=== PATIENT | female | born 1930 | race Caucasian/White ===

== ENCOUNTER 2017-05-12 21:34 | Inpatient (IN) | payer MEDICARE, BC ==
[2017-05-12 22:26] LABS: #Basophils 0.1 thou/uL (0.0-0.2); #Lymphocytes 2.9 thou/uL (1.20-3.40); #Monocytes 0.5 thou/uL (0.11-0.59); #Neutrophils 3.7 thou/uL (1.40-6.50); %Basophils 1.2 % (0.0-1.0); %Eosinophils 0.7 % (0.0-10.0); %Lymphocytes 40.1 % (21.0-51.0); %Monocytes 6.6 % (0.0-10.0); Hematocrit 35.7 % (36.0-47.0); Red Blood Cell (RBC) Count 3.91 mill/uL (4.20-5.40); White Blood Cell (WBC) Count 7.2 thou/uL (4.8-10.8)
[2017-05-12 22:29] LABS: PTT 31.4 SEC (22.9-36.1); Prothrombin Time 14.8 SEC (12.0-14.7)
[2017-05-12 22:35] LABS: ALT (SGPT) 16 U/L (8-55); Alkaline Phosphatase 74 U/L (40-150); Anion Gap 19 mmol/L (10-20); BUN (Urea Nitrogen) 19 mg/dL (9.8-20.1); Bilirubin, Total 1.2 mg/dL (0.2-1.2); Calc. Creatinine Clearance 0 mL/min (70-130); Calcium 6.8 mg/dL (7.8-10.44); Carbon Dioxide 24 mmol/L (23-31); Chloride 103 mmol/L (98-107); Estimated GFR-MDRD 37; Globulin 3.4 g/dL (2.4-3.5); Protein, Total 7.2 g/dL (6.0-8.3)
[2017-05-12 22:37] LABS: Troponin I 0.015 ng/mL (< 0.028)
[2017-05-12 22:49] LABS: AST (SGOT) 43 U/L (5-34)
[2017-05-12 22:53] LABS: Acetaminophen Less than 6.0 mcg/mL (10.0-30.0); Salicylate Less than 8.0 mg/dL (15.0-30.0)
--- NOTE | 2017-05-12 22:55 | CT ---
BRAIN CT WITHOUT IV CONTRAST: 05/12/17 HISTORY: 86-year-old female with altered mental status. Brain CT without IV contrast. HISTORY: An 86-year-old female with altered mental status. There is atrophy and marked chronic white matter ischemic change noted bilaterally. No focal mass or midline shift. No intra or extra-axial hemorrhage. Sinuses and mastoids are clear. IMPRESSION: Atrophy and very extensive chronic white matter ischemic changes bilaterally without mass or bleed. POS: [facility]
[2017-05-12 23:14] LABS: Bilirubin Negative (Negative); Blood, Urine Trace (Negative); Glucose, Urine (Dipstick) Negative (Negative); Ketone, Urine Negative (Negative); Nitrite Negative (Negative); Protein, Urine (Dipstick) Negative (Neg-Trace); Urobilinogen 0.2 mg/dL (0.2-1.0)
[2017-05-12 23:23] LABS: Bacteria/HPF None Seen HPF (None Seen); Hyaline Casts/LPF 0-3 HYALINE CAST LPF (0-3 Hyaline); RBC/HPF 0-3 HPF (0-3); Squamous Epithelial 0-3 HPF (0-3); WBC/HPF 0-3 HPF (0-3)
[2017-05-12 23:24] LABS: Amphetamine Not Detected (NotDetected); Methadone Not Detected (NotDetected); Methamphetamine Not Detected (NotDetected)
[2017-05-13 02:14] VITALS: BMI 20.1
[2017-05-13] MEDS ORDERED: Ondansetron ODT 4 MG TAB PO PRN (09:33)
[2017-05-13] MEDS ORDERED: Senokot 8.6 MG TAB PO PRN (09:33)
[2017-05-13] MEDS ORDERED: Calcium Carbonate 500 MG ChewTAB PO PRN (09:33)
[2017-05-13] MEDS ORDERED: Ondansetron HCl/PF 4 MG/2 ML Vial IVP PRN (09:33)
[2017-05-13] MEDS ORDERED: Nitroglycerin 0.4 MG TAB (25 Tab Bottle) PO PRN (09:33)
[2017-05-13] MEDS ORDERED: Acetaminophen 325 MG TAB PO PRN (09:33)
[2017-05-13] MEDS ORDERED: Nitroglycerin 2% Ointment 1 INCH/1 GM Packet TOP PRN (09:36)
--- NOTE | 2017-05-13 09:48 | HP ---
DATE OF ADMISSION: 05/13/2017 PRIMARY CARE PHYSICIAN: Vicente Garcia M.D. PRIMARY TEXTILE SCREEN MAKER: Dominick Reeves M.D. CHIEF COMPLAINT: Altered mentation. CODE STATUS: FULL CODE. SURROGATE DECISION MAKER: . HISTORY OF PRESENT ILLNESS: The patient is an 86-year-old female with paroxysmal atrial fibrillation on anticoagulation and colon cancer who presented to the emergency room with above complaints. History obtained from the ER record. Patient cannot recall any event from last night. Patient was discharged from this facility approximately 2 weeks ago. She was admitted for acute kidney injury with dehydration and UTI. She was discharged home on ciprofloxacin. Per ER record, the patient presented to the emergency room with altered mentation, confusion, and disorientation. Over the last one month, patient had intermittent hallucination, which is completely different from this. The and the patient went to the dinner last night. When they returned home , she was unable to recognize the house. There was no focal neurologic deficit reported. No recent injury, fever, or chills reported. The is not at the bedside. No other information available from the patient. In the emergency room, her initial vital signs showed temperature 97.4, respiration 19, pulse of 60, blood pressure of 174/98 with O2 saturation of 99% on room air. CT scan of the brain in the emergency room was negative for acute findings. It showed atrophy with extensive chronic white matter ischemic changes. Her EKG showed atrial fibrillation. The patient is currently on Eliquis per previous record. PAST MEDICAL HISTORY: 1. Paroxysmal atrial fibrillation on anticoagulation. 2. CKD stage 3. 3. History of colon cancer. 4. GERD. 5. Moderate protein calorie malnutrition. PAST SURGICAL HISTORY: 1. Laparoscopic cholecystectomy. 2. Right ovarian oophorectomy. 3. Colon resection. 4. Bladder reconstruction. ALLERGIES: The patient is allergic to CODEINE, LATEX, PENICILLIN, and SULFA. SOCIAL HISTORY: Patient currently lives at home with her . No tobacco, alcohol or drug use. FAMILY HISTORY: No family history of premature coronary artery disease, stroke , or cancer per review of previous records. HOME MEDICATIONS: Cannot be obtained from the patient due to current cognitive status. REVIEW OF SYSTEMS: Cannot be obtained from the patient due to current cognitive status. PHYSICAL EXAMINATION: VITAL SIGNS: As discussed above. GENERAL: An 86-year-old female in no apparent distress. Still confused. Per RN, confusion has somewhat improved. HEENT: Head is atraumatic, normocephalic. Sclerae are anicteric. Moist mucous membranes. No oral lesion. NECK: Supple, no JVD appreciated. No carotid bruit. LUNGS: Clear to auscultation bilaterally. HEART: S1 and S2 present, irregularly irregular. No significant rubs or gallops are appreciated. ABDOMEN: Soft. There is a scar from previous surgery. No guarding, rigidity or costovertebral angle tenderness noted. EXTREMITIES: No edema or calf tenderness. NEUROLOGIC/PSYCHIATRIC: Examination could not be done due to current cognitive status. The patient is alert; however is not oriented to time and place. She follows commands to some extent. There is no focal deficit appreciated. SKIN: Somewhat poor skin turgor. LYMPH NODES: No palpable lymph nodes in the neck. MUSCULOSKELETAL: No joint swelling or tenderness. LABORATORY FINDINGS AND IMAGIN. CBC showed WBC 7.2, hemoglobin 11.1, hematocrit 35.7, and platelet 265. 2. Chemistries showed sodium 142, potassium 3.8, chloride 103, bicarbonate 24, BUN of 19, creatinine 1.34. 3. TSH was normal. 4. Cardiac enzymes are normal. 5. Urinalysis was negative for WBC bacteria. 6. Urine drug screen was negative. 7. CT scan of the brain by my review as discussed above. 8. CT scan of the abdomen and pelvis in last admission was negative for obstruction. IMPRESSION: 1. Toxic metabolic encephalopathy, rule out transient ischemic attack. Exact etiology unclear. 2. Paroxysmal atrial fibrillation, on anticoagulation. 3. Acute kidney injury on chronic kidney disease stage 2. 4. Gastroesophageal reflux disease. 5. Moderate protein calorie malnutrition. 6. Dehydration. 7. Chronic anemia. 8. PENICILLIN, SULFA, AND CODEINE allergy. PLAN: 1. The patient will be monitored in the Stroke Unit. We will obtain an MRI of the brain with contrast due to history of colon cancer. We will try to obtain accurate home medication list. Frequent neuro checks. Fall precautions. We will resume Eliquis based on last discharge summary. We will hold diuretics for now. Gentle hydration for now. 2. We will discuss the plan of care with the family when they arrive. CHILO
[2017-05-13] MEDS ORDERED: Apixaban 5 MG TAB PO SCH (10:30)
[2017-05-13] MEDS: Sodium Chloride 0.9% 1,000 ML IV SCH (10:53)
[2017-05-13 11:17] LABS: Anion Gap 19 mmol/L (10-20); BUN (Urea Nitrogen) 15 mg/dL (9.8-20.1); BUN/Creatinine Ratio 12.93; Calc. Creatinine Clearance 28 mL/min (70-130); Calcium 6.7 mg/dL (7.8-10.44); Carbon Dioxide 22 mmol/L (23-31); Chloride 106 mmol/L (98-107); Estimated GFR-MDRD 45; Phosphorus 3.7 mg/dL (2.3-4.7)
[2017-05-13 11:21] LABS: Troponin I 0.029 ng/mL (< 0.028)
[2017-05-13] MEDS ORDERED: Folic Acid 1 MG TAB PO SCH (11:30)
--- NOTE | 2017-05-13 11:44 | RAD ---
RADIOGRAPH CHEST 1 VIEW RADIOGRAPH ABDOMEN 2 VIEWS: Date: 05/13/17 Time: 1003 HOURS HISTORY: 86-year-old female with altered mental status. History of small bowel obstruction. COMPARISON: 03/11/17. FINDINGS: New finding of mild blunting of the left lateral costophrenic angle. No air space density identified . Mild cardiomegaly without pulmonary vascular engorgement or pulmonary edema. No pneumothorax. No evidence of pneumoperitoneum. A few air fluid levels in nondilated, gas-filled loops of colon. No evidence of small bowel dilation. Cholecystectomy clips. No major interval change in the abdomen si nce 03/11/17. IMPRESSION: 1. No evidence of small bowel obstruction. 2. No evidence of pneumonia. 3. Small left pleural effusion. 4. Mild cardiomegaly without congestive heart failure. BUCK [] POS: [facility]
[2017-05-13] MEDS ORDERED: Cyanocobalamin (Vitamin B-12) 1,000 MCG TAB PO SCH (11:45)
[2017-05-13] MEDS ORDERED: Magnesium Sulfate 4 GM in Sodium Chloride 0.9% 250 ML 250 ML IVPB SCH (11:45)
[2017-05-13 12:12] LABS: Magnesium Less than 0.7 mg/dL (1.6-2.6)
--- NOTE | 2017-05-13 14:03 | MRI ---
MRI BRAIN NONCONTRAST: HISTORY: 86-year-old female with history of colon cancer, with encephalomalacia. Patient refused IV Gadoliniu m contrast injection. FINDINGS: Lack of IV contrast limits the sensitivity for the detection of intracranial metastasis. The ventricles are normal in size and configuration. There is no restricted diffusion, midline shif t or any other mass effect, recent intraaxial hemorrhage, or extraaxial fluid collection. There are extensive, confluent T2-hyperintensities throughout the cerebral white matter consistent with severe chronic ischemic white matter changes due to microvascular atherosclerosis. There is diffuse brain parenchymal volume loss. IMPRESSION: 1. Involutional changes and severe chronic ischemic white matter changes. 2. Otherwise negative. 3. Lack of IV contrast limits the sensitivity for the detection of intracranial metastasis. Patient refused IV contrast. kaley[] POS: [facility]
[2017-05-13 14:59] LABS: Troponin I 0.016 ng/mL (< 0.028)
[2017-05-13] MEDS: Calcium Carbonate + Vit D 1 TAB PO SCH (17:39)
[2017-05-13] MEDS: Apixaban 5 MG TAB PO SCH (20:38)
[2017-05-13] MEDS: Docusate 100 MG CAP PO SCH (20:38)
[2017-05-13] MEDS: Atorvastatin Calcium 10 MG TAB PO SCH (20:38)
[2017-05-13] MEDS ORDERED: Magnesium 2 GM/NS 0.9% 100 ML 2 GM in Premix Bag 1 BAG IVPB SCH (22:00)
[2017-05-14] MEDS: Sodium Chloride 0.9% 1,000 ML IV SCH ×2 (00:27→08:20)
[2017-05-14 04:53] LABS: #Basophils 0.1 thou/uL (0.0-0.2); #Eosinphils 0.1 thou/uL (0.0-0.7); #Lymphocytes 1.4 thou/uL (1.20-3.40); #Monocytes 0.4 thou/uL (0.11-0.59); #Neutrophils 2.1 thou/uL (1.40-6.50); %Basophils 1.4 % (0.0-1.0); %Eosinophils 2.2 % (0.0-10.0); %Lymphocytes 34.1 % (21.0-51.0); %Monocytes 10.4 % (0.0-10.0); Hematocrit 33.6 % (36.0-47.0); Mean Platelet Volume 7.9 fL (7.4-10.4); Red Blood Cell (RBC) Count 3.59 mill/uL (4.20-5.40); White Blood Cell (WBC) Count 4.1 thou/uL (4.8-10.8)
[2017-05-14 05:11] LABS: ALT (SGPT) 11 U/L (8-55); AST (SGOT) 25 U/L (5-34); Alkaline Phosphatase 63 U/L (40-150); Anion Gap 11 mmol/L (10-20); BUN (Urea Nitrogen) 10 mg/dL (9.8-20.1); Bilirubin, Total 0.8 mg/dL (0.2-1.2); Calc. Creatinine Clearance 38 mL/min (70-130); Calcium 6.6 mg/dL (7.8-10.44); Carbon Dioxide 24 mmol/L (23-31); Chloride 110 mmol/L (98-107); Cholesterol 143 mg/dl (< 200 Desired); Estimated GFR-MDRD 65; Globulin 2.3 g/dL (2.4-3.5); LDL Cholesterol, Calculated 56 mg/dL; Magnesium 2.2 mg/dL (1.6-2.6); Phosphorus 2.8 mg/dL (2.3-4.7); Protein, Total 5.4 g/dL (6.0-8.3)
[2017-05-14] MEDS: Calcium Carbonate + Vit D 1 TAB PO SCH ×3 (08:21→17:31)
[2017-05-14] MEDS: Cyanocobalamin (Vitamin B-12) 1,000 MCG TAB PO SCH (08:21)
[2017-05-14] MEDS: Folic Acid 1 MG TAB PO SCH (08:21)
[2017-05-14] MEDS: Docusate 100 MG CAP PO SCH ×2 (08:21→08:32)
[2017-05-14] MEDS: Apixaban 5 MG TAB PO SCH ×3 (08:22→22:30)
[2017-05-14] MEDS: NS 0.9% w/ 40 MEQ KCL 1,000 ML IV SCH (09:31)
[2017-05-14] MEDS ORDERED: Loperamide HCl 2 MG CAP PO PRN (10:54)
[2017-05-14] MEDS ORDERED: Calcium Gluconate 4.6 MEQ in Sodium Chloride 0.9% 100 ML IVPB SCH (11:15)
--- NOTE | 2017-05-14 11:55 | PRG ---
DATE OF SERVICE: 05/14/2017 SUMMARY: An 86-year-old female with paroxysmal atrial fibrillation on anticoagulation, presented wi th altered mentation. SUBJECTIVE: The patient denies any new complaints at this time. The patient had ventricular tachyc ardia last night. Magnesium at that time was 1.7. She received 2 grams magnesium. She denies any chest pain, shortness of breath, palpitations or focal neurologic deficits. OBJECTIVE: VITAL SIGNS: Temperature 97.7, pulse rate in 40s, respirations 12, blood pressure 137/62 earlier to day. Last blood pressure was 185/75. GENERAL: An 86-year-old female, in no apparent distress. LUNGS: Clear to auscultation bilaterally. No wheezing, rales, or rhonchi. HEART: S1, S2 present. Irregularly irregular. Bradycardic. 2/6 systolic murmur over the mitral a martín. No rubs or gallops. ABDOMEN: Soft, nontender, bowel sounds present. No rebound or guarding. EXTREMITIES: No edema or calf tenderness. NEUROLOGIC: Grossly nonfocal, moves all four extremities. Power was 5/5 in all extremities. Sensa tion to touch was normal. PSYCHIATRIC: The patient is alert and awake. Her mentation is somewhat better today. LABORATORY FINDINGS: Magnesium 2.2, albumin 3.1, potassium 3.0. CBC showed WBC 4.1 with hemoglobin 10.3. Telemetry monitoring by my review showed atrial fibrillation with slow ventricular response. KUB and chest x-ray by my review was negative. MRI of the brain was negative for acute CVA. It showed chronic ischemic white matter changes. IMPRESSION: 1. Toxic metabolic encephalopathy, multifactorial. 2. Hypomagnesemia, corrected. 3. Ventricular tachycardia yesterday evening. 4. 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 5. Gastroesophageal reflux disease, on PPIs at home. 6. Moderate protein calorie malnutrition. 7. Dehydration. 8. Chronic anemia. 9. Poor appetite. 10. Indeterminate troponins, probably secondary to demand ischemia. 11. Hypocalcemia, probably secondary to nutritional deficiency. Vitamin B12 was normal last month. 12. Vitamin B12 deficiency. 13. Hypokalemia. 14. PENICILLIN, SULFA, AND CODEINE allergy. 15. Slightly abnormal LFTs on admission, resolved. PLAN: 1. Continue telemetry monitoring with frequent neuro checks. A cardiology consult for ventricular tachycardia. 2. Replace calcium and potassium. 3. Change IV fluids to NS with 40 mEq of potassium chloride at 75 mL hour. We will discharge omepr azole completely due to risk of hypomagnesemia and C. diff. 4. Check stool for C. diff. 5. Continue amlodipine for now for blood pressure. 6. Replace vitamin B12. 7. Oral calcium with vitamin D supplementation. 8. Continue Eliquis. Plan of care was discussed with Dr. Dash. Plan of care was discussed with the patient, she stated understanding. LEVEL OF RISK: Moderate to high. The patient will require 1 or 2 more days for stabilization. The patient has home health care throu traditions which will be resumed. A.m. labs have been ordered.
--- NOTE | 2017-05-14 14:02 | CON ---
CARDIOLOGY CONSULTATION NOTE DATE OF CONSULTATION: 05/14/2017 INDICATION FOR CONSULTATION: An 86-year-old female with an episode of nonsustained ventricular tach ycardia and chronic atrial fibrillation with slow ventricular response. HISTORY OF PRESENT ILLNESS: This is an 86-year-old female with multiple medical problems with a his tory of chronic atrial fibrillation, was admitted via the emergency room after she had episodes of m ore confusion and disorientation and hallucinations. She had been out to dinner with her an d when they came home, she did not recognize her house. She has been complaining of seeing people i n the house, going to ask her family to have these people removed or for them to get out, but these hallucinations have been ongoing for about a month now. She does have a history of colon cancer. S he had underwent a CT scan and MRI since being in the hospital on this admission. There was no evid ence of acute findings. She does have ischemic white matter changes which is rather extensive, but no acute findings otherwise were noted. She has had no history of subdural hematoma. She did have a fall recently within the last week or two off of her back porch while trying to feed the cat, so t hat she fell. There was no fracture, but she did have a hematoma of the left hip area, but did not have any cerebral injuries associated with this. She does have chronic atrial fibrillation. She haywood s had some slow ventricular response in the past. There has been some discussion with her primary c ardiologist, Dr. Dominick Reeves about pacemaker insertion. This was put on hold for the time being and there was some discussion about putting a port in her to draw blood with her history of colon cance r. She also has had some chronic nausea, vomiting, and diarrhea for the last 5 weeks. She has lost significant amount of weight. When she arrived at this time to the hospital, her magnesium level w as less than 1. She at that time also was having some nonsustained ventricular tachycardia, 2 episo joan, one at 12 beats and one at 15 beats. The magnesium was corrected as well as she was given IV f luids and she seems to be more back to her baseline. At this time, she does not appear to be confus ed and her status is stable and her heart rate is up in the 50s to 60s with atrial fibrillation. Sh reny did have some episodes last night with her heart rate did drop down to the 30s and 40s with her at ria fibrillation, but she appeared to be sleeping at this time and even during the waking hours she has been asymptomatic with bradycardia. Whether or not, the bradycardia has been associated with s ome of her episodes at home is unclear and we could consider placing the monitor if this is in quest ion. At this time, she denies any complaints. She is sitting on the side of the bed. She has had some banana for breakfast and some ice cream yesterday, but has not been eating very well since that she has lost her appetite. PAST MEDICAL HISTORY: Significant for colon cancer. She has had her colon resection and chemothera py about 3 years ago. She has a history of gastroesophageal reflux disease, chronic atrial fibrilla tion, hypertension and hyperlipidemia. PAST SURGICAL HISTORY: She has had a right oophorectomy. She had a cholecystectomy, bladder recons truction. She has also had, I believe recently, a repeat surgery in 01/2017 of due to bowel obstruc tion. SOCIAL HISTORY: She is . She has no children. She has no alcohol or tobacco abuse. This i s her second marriage. FAMILY HISTORY: Noncontributory. REVIEW OF SYSTEMS: Twelve point review of systems is unremarkable except she has some decreased vis ion in the right eye, so she needs to have cataract surgery. She has had the diarrhea, the nausea, and vomiting. She has had some lower extremity edema, which is now resolved after the diarrhea and also she was put on diuretics in the past. This is all now resolved. ALLERGIES: Include LATEX, PENICILLIN, SULFA DRUGS and CODEINE. OUTPATIENT MEDICATIONS: She was taking lisinopril 20 mg b.i.d., omeprazole 20 mg b.i.d., Eliquis 2. 5 mg b.i.d., furosemide 10 mg daily. At this time, her medications include Eliquis 2.5 mg b.i.d., Lipitor 10 mg a day. She is also takin g calcium as well as Tylenol. She takes Colace 100 mg b.i.d.; with her diarrhea, we may need to hol d this medication. She takes Folvite. She has been given magnesium IV. She has other p.r.n. medic ations. She is taking Protonix 40 mg a day. She had been on potassium, amlodipine 5 mg a day, hydr alazine 10 mg p.r.n. PHYSICAL EXAMINATION: GENERAL: Reveals a fragile elderly female. She is alert and oriented. VITAL SIGNS: She is afebrile, heart rate is in the 40s to 60s and is irregular, respiratory rate is 18, O2 saturations are 100%. Her blood pressure fluctuates anywhere between 137/62 to 185/75. HEENT EXAM: Shows head to be normocephalic and atraumatic. Carotid pulses are present. There were no bruits. CHEST: Clear to auscultation without rales, rhonchi or wheezing. CARDIOVASCULAR: Exam reveals an irregularly irregular rhythm. There were no gross murmurs, heaves, thrills, bruits or rubs. ABDOMINAL EXAM: Soft and nontender. Positive bowel sounds are present. EXTREMITIES: Show no clubbing, cyanosis or edema. Pedal pulses are present, but slightly decreased . NEUROLOGIC: She appears to be intact. SKIN: Warm and dry. Her EKG as noted above shows atrial fibrillation. LABORATORY DATA: Shows hemoglobin of 10.3, hematocrit of 33.6 with a white blood cell count of 4.1. Her INR is 1.1. Her potassium is 3.0, previous was 4.2 when she was admitted. Creatinine is 0.84 . Her magnesium level on admission was 0.7 and is now increased up to 2.2. Troponin I was 0.029 de creased now to 0.016. Her albumin was 3.1. LDL cholesterol was 56. IMPRESSION: 1. Atrial fibrillation with slow ventricular response. She eventually may need to have a pacemaker insertion, but she appears to be relatively asymptomatic. However, some of her confusion and hallu cinations may be due to bradycardia associated with atrial fibrillation. We will continue to follow this. I have to discuss with her that she may need to undergo pacemaker insertion and we have disc ussed the procedure as well as the complications and the risks involved. Should she need to undergo pacemaker insertion. 2. History of nonsustained ventricular tachycardia, which most likely was associated with hypomagne semia as well as possibly atrial fibrillation if the ventricular response occurs just at the right f deena as this may invoke ventricular tachycardia. She apparently was asymptomatic. We will watch thi s very carefully. There has been no further episodes; since, we have corrected the magnesium. 3. Chronic kidney disease, which is stable at this time. The creatinine is stable now. 4. History of colon cancer. The CT scans and MRIs have not shown any evidence of brain metastasis and may have accounted for her confusion as well as the hallucinations. 5. Confusion and hallucinations uncertain etiology. This may be due to the slow ventricular respon se or may be due to her overall malnutrition. I will see whether or not this improves. When I did speak to her she did have pretty much normal mentation and was not happy hallucinations at that time . 6. Chronic anemia, this most likely is multifactorial and certainly is due to some of her diet. Key og[place] says she has lost her appetite, is not eating very well. There has been no indication that she is having any hematuria or any hematochezia. 7. Hypomagnesemia. This has been replaced and she appears to be under relatively good control at t his time. 8. Obviously malnutrition. She will be encouraged to eat whatever she can get down orally or incre ase caloric intake. At this time, we will continue to follow the patient; would not suggest pacemak er insertion in this lady at this time, but we will watch her today. If she continues to have heart rates in the 50s to 60s, the most likely she will not need to undergo pacemaker insertion. If she continues to have episodes of 30s-40s, then we will suggest pacemaker insertion to decrease the risk of further hypoperfusion events.
[2017-05-14] MEDS: Magnesium Chloride 64 MG TAB PO SCH ×3 (15:13→22:30)
[2017-05-14] MEDS: Famotidine 20 MG TAB PO SCH ×2 (22:12→22:30)
[2017-05-14] MEDS: Atorvastatin Calcium 10 MG TAB PO SCH ×2 (22:12→22:30)
[2017-05-15] MEDS: NS 0.9% w/ 40 MEQ KCL 1,000 ML IV SCH (02:30)
[2017-05-15 05:41] LABS: Anion Gap 11 mmol/L (10-20); BUN (Urea Nitrogen) 7 mg/dL (9.8-20.1); BUN/Creatinine Ratio 8.86; Calc. Creatinine Clearance 41 mL/min (70-130); Calcium 7.1 mg/dL (7.8-10.44); Carbon Dioxide 21 mmol/L (23-31); Chloride 113 mmol/L (98-107); Estimated GFR-MDRD 69; Magnesium 1.6 mg/dL (1.6-2.6); Phosphorus 1.7 mg/dL (2.3-4.7)
[2017-05-15 08:42] LABS: Anion Gap 12 mmol/L (10-20); BUN (Urea Nitrogen) 8 mg/dL (9.8-20.1); Calc. Creatinine Clearance 42 mL/min (70-130); Calcium 7.1 mg/dL (7.8-10.44); Carbon Dioxide 20 mmol/L (23-31); Chloride 112 mmol/L (98-107); Estimated GFR-MDRD 71
[2017-05-15] MEDS: Apixaban 5 MG TAB PO SCH ×2 (08:52→20:42)
[2017-05-15] MEDS: Famotidine 20 MG TAB PO SCH ×2 (08:53→20:42)
[2017-05-15] MEDS: Cyanocobalamin (Vitamin B-12) 1,000 MCG TAB PO SCH (08:53)
[2017-05-15] MEDS: Calcium Carbonate + Vit D 1 TAB PO SCH ×2 (08:53→15:56)
[2017-05-15] MEDS: Folic Acid 1 MG TAB PO SCH (08:53)
[2017-05-15] MEDS: Magnesium Chloride 64 MG TAB PO SCH ×3 (08:54→20:42)
[2017-05-15 10:05] LABS: Anion Gap 13 mmol/L (10-20); BUN (Urea Nitrogen) 8 mg/dL (9.8-20.1); Calc. Creatinine Clearance 36 mL/min (70-130); Carbon Dioxide 23 mmol/L (23-31); Chloride 112 mmol/L (98-107); Estimated GFR-MDRD 61
--- NOTE | 2017-05-15 10:48 | PDOC.CTH ---
Cardiology Progress Note - Subjective She is doing better. Her mental status is back to normal. - Objective Vital Signs Temp Pulse Resp BP BP BP Pulse Ox 05/15/17 10:29 58 L 05/15/17 09:54 58 L 177/77 H 05/15/17 08:53 61 141/68 H 05/15/17 07:33 97.6 F 61 16 141/68 H 93 L 05/15/17 04:23 98.6 F 57 L 16 149/65 H 97 05/15/17 00:00 98.3 F 54 L 19 129/59 L 95 Weight 106 lb 11.2 oz 05/14/17 05/15/17 05/16/17 06:59 06:59 06:59 Intake Total 2305 2355 Balance 2305 2355 - Physical Examination General/Neuro: alert & oriented x3, NAD Neck: no JVD present Lungs: unlabored respirations Heart: RRR Abdomen: NT/ND Extremities: other: (no edema) - Telemetry Telemetry Rhythm: NSR HR 60's. - Labs Result Diagrams: 05/14/17 04:35 05/15/17 09:23 Troponin/CKMB CK-MB (CK-2) 1.2 ng/mL (0-6.6) 05/12/17 22:20 Troponin I 0.016 ng/mL (< 0.028) 05/13/17 14:30 - Assessment/Plan 1. Sinus bradycardial. 2. AMS, resolved. 3. NSVT 4. Hypomagnesemia, resolved. 5. S/P abdominal tumor resection. 6. Chronic afib. 7. Hypekalemia. Being rechecked now. PLAN: - She feels back to normal. She would like to go home and go see her own [employer] Dr. Reeves to see what the next step should be. - She will need an ischemic work up if has not already been done recently. - No BB due to bradycardia. - CV stable. - May be discharged home once potassium corrected.
--- NOTE | 2017-05-15 10:59 | PDOC.PN ---
- Subjective Encounter Start Date: 05/15/17 Encounter Start Time: 10:00 Patient seen and examined. No new complaints. Mentation improved. - Objective Resuscitation Status: Resuscitation Status FULL:Full Resuscitation MAR Reviewed: Yes Vital Signs & Weight: Vital Signs (12 hours) Temp Pulse Resp BP BP BP Pulse Ox 05/15/17 10:29 58 L 05/15/17 09:54 58 L 177/77 H 05/15/17 08:53 61 141/68 H 05/15/17 07:33 97.6 F 61 16 141/68 H 93 L 05/15/17 04:23 98.6 F 57 L 16 149/65 H 97 05/15/17 00:00 98.3 F 54 L 19 129/59 L 95 Weight Weight 106 lb 11.2 oz I&O: 05/14/17 05/15/17 05/16/17 06:59 06:59 06:59 Intake Total 2305 2355 Balance 2305 2355 Result Diagrams: 05/14/17 04:35 05/15/17 09:23 EKG Reviewed by me: Yes (Tele Afib ) Phys Exam - Physical Examination Constitutional: NAD Respiratory: no wheezing, no rhonchi Cardiovascular: no rub, irregular Gastrointestinal: soft, non-tender, positive bowel sounds Musculoskeletal: no edema Neurological: non-focal, normal sensation, moves all 4 limbs Dx/Plan - Plan IMPRESSION: 1. Toxic metabolic encephalopathy, multifactorial. improving 2. Hyperkalemia ?etio. Was 3.0 yesterday. Received Potassium chloride 60 meq in the last 24 hr. 3. Ventricular tachycardia. No new episode. 4. 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 5. Gastroesophageal reflux disease, on PPIs at home. 6. Moderate protein calorie malnutrition. 7. Dehydration. 8. Chronic anemia. 9. Poor appetite. 10. Indeterminate troponins, probably secondary to demand ischemia. 11. Hypocalcemia, probably secondary to nutritional deficiency. Replaced 12. Vitamin B12 deficiency. 13. Hypokalemia. replaced 14. PENICILLIN, SULFA, AND CODEINE allergy. 15. Slightly abnormal LFTs on admission, resolved. 16. Hypomagnesemia, corrected PLAN: * Cardiology has signed off - Patient wants to d/w Dr Reeves regarding pacemaker * No betablockers due to bradycardia * Nephrology consulted for hyperkalemia - I d/w Dr Bowen - He recommended to give Kayexalate/Lactulose with Insulin/D50 * Repeat labs later today * Gentle IV hydration * AM labs * Cont other meds as below * Diarrhea has resolved. * Increase Amlodipine to BID due to elevated BP. Review of Systems - Review of Systems Constitutional: negative: Fever, Chills, Sweats, Weakness, Malaise, Other Respiratory: negative: Cough, Dry, Shortness of Breath, Hemoptysis, SOB with Excertion, Pleuritic Pain, Sputum, Wheezing Cardiovascular: negative: Chest Pain, Palpitations, Orthopnea, Paroxysmal Noc. Dyspnea, Edema, Light Headedness, Other Gastrointestinal: negative: Nausea, Vomiting, Abdominal Pain, Diarrhea, Constipation, Melena, Hematochezia, Other - Medications/Allergies Allergies/Adverse Reactions: Allergies Allergy/AdvReac Type Severity Reaction Status Date / Time codeine Allergy Verified 11/14/16 00:55 latex Allergy rash--"severly Verified 11/14/16 00:55 allergic" Penicillins Allergy "faint" Verified 11/14/16 00:55 Sulfa (Sulfonamide Allergy "get Verified 11/14/16 00:55 Antibiotics) deathly sick to stomach" Medications: Current Medications Acetaminophen (Tylenol) 650 mg PO Q4H PRN PRN Reason: Headache/Fever or Pain Amlodipine Besylate (Norvasc) 5 mg PO BID [facility] Apixaban (Eliquis) 2.5 mg PO BID [facility] Last Admin: 05/15/17 08:52 Dose: 2.5 mg Atorvastatin Calcium (Lipitor) 10 mg PO HS [facility] Last Admin: 05/14/17 22:30 Dose: Not Given Calcium Carbonate (Tums) 1,000 mg PO Q4H PRN PRN Reason: Heartburn or Indigestion Calcium/Vitamin D (Caltrate 600 + Vit D) 1 tab PO BID-WM [facility] Last Admin: 05/15/17 08:53 Dose: 1 tab Cyanocobalamin (Vitamin B-12) 1,000 mcg PO DAILY [facility] Last Admin: 05/15/17 08:53 Dose: 1,000 mcg Dextrose/Water (Dextrose 50%) 25 gm SLOW IVP ONE [facility] Famotidine (Pepcid) 20 mg PO BID [facility] Last Admin: 05/15/17 08:53 Dose: 20 mg Folic Acid (Folvite) 1 mg PO DAILY [facility] Last Admin: 05/15/17 08:53 Dose: 1 mg Hydralazine HCl (Apresoline) 10 mg SLOW IVP Q4H PRN PRN Reason: SBP Greater Than 180 Last Admin: 05/15/17 10:29 Dose: 10 mg Hydralazine HCl (Apresoline) 5 mg SLOW IVP Q4H PRN PRN Reason: SBP GREATER THAN 160 Sodium Chloride (1/2 Normal Saline) 1,000 mls @ 50 mls/hr IV .Q20H [facility] Insulin Human Regular (Humulin R) 5 units IVP ONE [facility] Lactulose (Lactulose) 30 gm PO DAILY [facility] Loperamide HCl (Imodium) 2 mg PO PRN PRN PRN Reason: Diarrhea/Loose Stools Magnesium Chloride (Slow-Mag) 64 mg PO TID [facility] Last Admin: 05/15/17 08:54 Dose: 64 mg Nitroglycerin (Nitrostat) 0.4 mg PO Q5MIN PRN PRN Reason: Chest Pain Nitroglycerin (Nitro-Bid 2% Ointment) 0.5 inch TOP Q8H PRN PRN Reason: SBP Greater Than 180 Ondansetron HCl (Zofran Odt) 4 mg PO Q6H PRN PRN Reason: Nausea/Vomiting Last Admin: 05/13/17 10:59 Dose: 4 mg Ondansetron HCl (Zofran) 4 mg IVP Q6H PRN PRN Reason: Nausea/Vomiting Senna (Senokot) 2 tab PO HSPRN PRN PRN Reason: Constipation Sodium Chloride (Flush - Normal Saline) 10 ml IVF Q12HR [facility] Sodium Chloride (Flush - Normal Saline) 10 ml IVF PRN PRN PRN Reason: Saline Flush Sodium Polystyrene Sulfonate (Kayexelate Oral Susp 15 Gm/60 Ml) 30 gm PO ONE [facility]
[2017-05-15] MEDS ORDERED: Insulin Regular 300 UNITS/3 ML VIAL IVP SCH (11:00)
[2017-05-15] MEDS ORDERED: Dextrose 50% Abboject 50 ML SYRINGE SLOW IVP SCH (11:00)
[2017-05-15] MEDS: Sodium Chloride 0.45% 1,000 ML IV SCH (11:48)
[2017-05-15 17:21] LABS: Anion Gap 14 mmol/L (10-20); BUN (Urea Nitrogen) 8 mg/dL (9.8-20.1); Calc. Creatinine Clearance 35 mL/min (70-130); Calcium 8.6 mg/dL (7.8-10.44); Carbon Dioxide 19 mmol/L (23-31); Chloride 109 mmol/L (98-107); Estimated GFR-MDRD 58; Magnesium 1.6 mg/dL (1.6-2.6)
[2017-05-15 17:29] LABS: Phosphorus 1.7 mg/dL (2.3-4.7)
[2017-05-15] MEDS ORDERED: Magnesium 2 GM/NS 0.9% 100 ML 2 GM in Premix Bag 1 BAG IVPB SCH (18:00)
[2017-05-15] MEDS ORDERED: Sodium Phosphate 10 MMOL in Sodium Chloride 0.9% 250 ML 250 ML IVPB SCH (19:45)
[2017-05-15] MEDS: Atorvastatin Calcium 10 MG TAB PO SCH (20:42)
[2017-05-16 05:53] LABS: Anion Gap 11 mmol/L (10-20); BUN (Urea Nitrogen) 11 mg/dL (9.8-20.1); BUN/Creatinine Ratio 12.94; Calc. Creatinine Clearance 38 mL/min (70-130); Calcium 8.9 mg/dL (7.8-10.44); Carbon Dioxide 22 mmol/L (23-31); Chloride 110 mmol/L (98-107); Estimated GFR-MDRD 64; Phosphorus 2.8 mg/dL (2.3-4.7)
--- NOTE | 2017-05-16 06:30 | CON ---
DATE OF CONSULTATION: 05/15/2017 NEPHROLOGY CONSULT NOTE CONSULTING PHYSICIAN: Dr. Heaton. REASON FOR CONSULTATION: Hyperkalemia. REASON FOR ADMISSION: Altered mentation. HISTORY OF PRESENT ILLNESS: This is an 86-year-old female with history of atrial fibrillation, colon cancer, came to the hospital with altered mentation and is being treated. She was found to have hyperkalemia today. Her potassium was 3.0 on admission and this morning was found to have 6.2 and she had medical treatment, and after that this evening, her potassium is 5.1. Patient denies any symptoms. She was bradycardiac and she had few abnormalities here. No chest pain, palpitation, no fever or chills. Patient wants to go home. PAST MEDICAL HISTORY: Positive for atrial fibrillation, CKD, colon cancer, GERD , and protein-calorie malnutrition. PAST SURGICAL HISTORY: Cholecystectomy, right ovarian oophorectomy, colon resection, and bladder reconstruction. ALLERGIES: CODEINE, LATEX, PENICILLIN, AND SULFA. HOME MEDICATIONS: Tramadol, Eliquis, K-Dur, ciprofloxacin, promethazine, and Zofran. FAMILY HISTORY: No history of any kidney disease. REVIEW OF SYSTEMS: The following complete review of systems was negative, unless otherwise mentioned in the HPI or below: Constitutional: Weight loss or gain, ability to conduct usual activities. Skin: Rash, itching. Eyes: Double vision, pain. ENT/Mouth: Nose bleeding, neck stiffness, pain, tenderness. Cardiovascular: Palpitations, dyspnea on exertion, orthopnea. Respiratory: Shortness of breath, wheezing, cough, hemoptysis, fever or night sweats. Gastrointestinal: Poor appetite, abdominal pain, heartburn, nausea, vomiting, constipation, or diarrhea. Genitourinary: Urgency, frequency, dysuria, nocturia. Musculoskeletal: Pain, swelling. Neurologic/Psychiatric: Anxiety, depression. Allergy/Immunologic: Skin rash, bleeding tendency. SOCIAL HISTORY: No smoking, alcohol, or illicit drug abuse. PHYSICAL EXAMINATION: GENERAL: Elderly female, in no apparent distress. VITAL SIGNS: Temperature 98.3, pulse 79, respirations 16, blood pressure 120/ 58. Musculoskeletal : No tenderness, No edema HEENT: Atraumatic normocephalic Neck: Supple Cardiovascular: S1S2 heard, Rate and rhythm regular Respiratory: Clear to auscultation Gastrointestinal: Abdomen is soft Dermatologic : No skin rash Neurologic: Alert and awake and oriented X3 No focal neurologic deficits. Moving all the extremities. Psychiatric: Mood and affect normal LABORATORY: Potassium is 5.1, BUN 8, creatinine 0.9. ASSESSMENT AND PLAN: 1. Hyperkalemia, most likely from supplements and potassium level is better. Limit potassium intake and monitor closely. Patient does have a history of hypokalemia. 2. Hypoalbuminemia. Increase protein intake. 3. Anemia, rule out bleed. 4. Edema, controlled. 5. Hypertension, stable. 6. Limit potassium in the diet and potassium level is stable. I will sign off. Please call back with any questions. MTDD
[2017-05-16] MEDS: Calcium Carbonate + Vit D 1 TAB PO SCH ×2 (10:17→18:34)
[2017-05-16] MEDS: Apixaban 5 MG TAB PO SCH ×2 (10:19→21:38)
[2017-05-16] MEDS: Cyanocobalamin (Vitamin B-12) 1,000 MCG TAB PO SCH (10:20)
[2017-05-16] MEDS: Magnesium Chloride 64 MG TAB PO SCH ×3 (10:20→21:38)
[2017-05-16] MEDS: Folic Acid 1 MG TAB PO SCH (10:20)
[2017-05-16] MEDS: Famotidine 20 MG TAB PO SCH ×2 (10:20→21:38)
--- NOTE | 2017-05-16 12:24 | PDOC.PN ---
- Subjective Encounter Start Date: 05/16/17 Encounter Start Time: 09:00 Patient seen and examined. No new complaints. No overnight events - Objective Resuscitation Status: Resuscitation Status FULL:Full Resuscitation MAR Reviewed: Yes Vital Signs & Weight: Vital Signs (12 hours) Temp Pulse Resp BP BP BP Pulse Ox 05/16/17 11:05 97.4 F L 84 18 169/72 H 95 05/16/17 10:46 61 196/83 H 05/16/17 10:18 61 192/82 H 05/16/17 07:23 98 F 61 18 192/82 H 98 05/16/17 06:42 61 174/74 H 05/16/17 06:30 174/74 H 05/16/17 03:26 97.8 F 61 14 180/79 H 95 Weight Admit Weight 106 lb 11.2 oz Weight 113 lb 9.6 oz I&O: 05/15/17 05/16/17 05/17/17 06:59 06:59 06:59 Intake Total 2355 945 Balance 2355 945 Result Diagrams: 05/14/17 04:35 05/16/17 05:05 EKG Reviewed by me: Yes (Tele Afib with 2.8 sec pause) Phys Exam - Physical Examination Constitutional: NAD Respiratory: no wheezing, no rhonchi Cardiovascular: RRR, no rub Gastrointestinal: soft, non-tender, no distention, positive bowel sounds Musculoskeletal: no edema Neurological: moves all 4 limbs Dx/Plan - Plan IMPRESSION: 1. Toxic metabolic encephalopathy, multifactorial. improved 2. Hyperkalemia ?etio. 3. Ventricular tachycardia. No new episode. 4. 2.8 sec sinus pause - probably sick sinus syndrome - Refusing pacemaker at this time. 5. Gastroesophageal reflux disease, on PPIs at home. 6. Moderate protein calorie malnutrition. 7. Dehydration. 8. Chronic anemia. 9. Poor appetite. 10. Indeterminate troponins, probably secondary to demand ischemia. 11. Hypocalcemia, probably secondary to nutritional deficiency. Replaced 12. Vitamin B12 deficiency. 13. Hypokalemia. replaced 14. PENICILLIN, SULFA, AND CODEINE allergy. 15. Slightly abnormal LFTs on admission, resolved. 16. Hypomagnesemia, corrected 17. 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 PLAN: * Cardiology has signed off - Patient wants to d/w Dr Reeves regarding pacemaker * No betablockers due to bradycardia * Nephrology following for hyperkalemia - ABGs attempted per Nephrology instruction - not enough sample to run - difficult to obtain * Repeat labs later today * Gentle IV hydration * AM labs * Cont other meds as below * Cont Amlodipine to BID * On Anticoagulation * DC later today or in AM if stable * [facility] at nd Review of Systems - Review of Systems Constitutional: negative: Fever, Chills, Sweats, Weakness, Malaise, Other Respiratory: negative: Cough, Dry, Shortness of Breath, Hemoptysis, SOB with Excertion, Pleuritic Pain, Sputum, Wheezing Cardiovascular: negative: Chest Pain, Palpitations, Orthopnea, Paroxysmal Noc. Dyspnea, Edema, Light Headedness, Other Gastrointestinal: negative: Nausea, Vomiting, Abdominal Pain, Diarrhea, Constipation, Melena, Hematochezia, Other Genitourinary: negative: Dysuria, Frequency, Incontinence, Hematuria, Retention , Other Neurological: negative: Weakness, Numbness, Incoordination, Change in Speech, Confusion, Seizures, Other - Medications/Allergies Allergies/Adverse Reactions: Allergies Allergy/AdvReac Type Severity Reaction Status Date / Time codeine Allergy Verified 11/14/16 00:55 latex Allergy rash--"severly Verified 11/14/16 00:55 allergic" Penicillins Allergy "faint" Verified 11/14/16 00:55 Sulfa (Sulfonamide Allergy "get Verified 11/14/16 00:55 Antibiotics) deathly sick to stomach" Medications: Current Medications Acetaminophen (Tylenol) 650 mg PO Q4H PRN PRN Reason: Headache/Fever or Pain Last Admin: 05/15/17 20:59 Dose: 650 mg Amlodipine Besylate (Norvasc) 5 mg PO BID [facility] Last Admin: 05/16/17 10:18 Dose: 5 mg Apixaban (Eliquis) 2.5 mg PO BID [facility] Last Admin: 05/16/17 10:19 Dose: 2.5 mg Atorvastatin Calcium (Lipitor) 10 mg PO HS [facility] Last Admin: 05/15/17 20:42 Dose: 10 mg Calcium Carbonate (Tums) 1,000 mg PO Q4H PRN PRN Reason: Heartburn or Indigestion Calcium/Vitamin D (Caltrate 600 + Vit D) 1 tab PO BID-[facility] Last Admin: 05/16/17 10:17 Dose: 1 tab Cyanocobalamin (Vitamin B-12) 1,000 mcg PO DAILY [facility] Last Admin: 05/16/17 10:20 Dose: 1,000 mcg Famotidine (Pepcid) 20 mg PO BID [facility] Last Admin: 05/16/17 10:20 Dose: 20 mg Folic Acid (Folvite) 1 mg PO DAILY [facility] Last Admin: 05/16/17 10:20 Dose: 1 mg Hydralazine HCl (Apresoline) 10 mg SLOW IVP Q4H PRN PRN Reason: SBP Greater Than 180 Last Admin: 05/16/17 10:46 Dose: 10 mg Hydralazine HCl (Apresoline) 5 mg SLOW IVP Q4H PRN PRN Reason: SBP GREATER THAN 160 Last Admin: 05/16/17 06:42 Dose: 5 mg Sodium Chloride (1/2 Normal Saline) 1,000 mls @ 50 mls/hr IV .Q20H [facility] Last Admin: 05/15/17 11:48 Dose: 1,000 mls Loperamide HCl (Imodium) 2 mg PO PRN PRN PRN Reason: Diarrhea/Loose Stools Magnesium Chloride (Slow-Mag) 64 mg PO TID [facility] Last Admin: 05/16/17 10:20 Dose: 64 mg Nitroglycerin (Nitrostat) 0.4 mg PO Q5MIN PRN PRN Reason: Chest Pain Nitroglycerin (Nitro-Bid 2% Ointment) 0.5 inch TOP Q8H PRN PRN Reason: SBP Greater Than 180 Ondansetron HCl (Zofran Odt) 4 mg PO Q6H PRN PRN Reason: Nausea/Vomiting Last Admin: 05/13/17 10:59 Dose: 4 mg Ondansetron HCl (Zofran) 4 mg IVP Q6H PRN PRN Reason: Nausea/Vomiting Senna (Senokot) 2 tab PO HSPRN PRN PRN Reason: Constipation Sodium Chloride (Flush - Normal Saline) 10 ml IVF Q12HR [facility] Last Admin: 05/16/17 10:21 Dose: 10 ml Sodium Chloride (Flush - Normal Saline) 10 ml IVF PRN PRN PRN Reason: Saline Flush
[2017-05-16] MEDS ORDERED: Sodium Phosphate 10 MMOL in Sodium Chloride 0.9% 250 ML 250 ML IVPB SCH ×2 (14:00→19:00)
[2017-05-16] MEDS: Sodium Chloride 0.45% 1,000 ML IV SCH (14:42)
--- NOTE | 2017-05-16 17:45 | PDOC.CTH ---
Cardiology Progress Note - Subjective She had episodes of bradycardia down to the upper 30's while sleeping. otherwise she is back to her normal baseline. - Objective Vital Signs Temp Pulse Resp BP BP BP Pulse Ox 05/16/17 15:10 97.5 F L 80 16 185/83 H 98 05/16/17 11:05 97.4 F L 84 18 169/72 H 95 05/16/17 10:46 61 196/83 H 05/16/17 10:18 61 192/82 H 05/16/17 08:00 97.4 F L 84 18 95 05/16/17 07:23 98 F 61 18 192/82 H 98 05/16/17 06:42 61 174/74 H 05/16/17 06:30 174/74 H Admit Weight 106 lb 11.2 oz Weight 113 lb 9.6 oz 05/15/17 05/16/17 05/17/17 06:59 06:59 06:59 Intake Total 2355 945 Balance 2355 945 - Physical Examination General/Neuro: alert & oriented x3, NAD Neck: no JVD present Lungs: CTA, unlabored respirations Heart: other: (Irregular) Abdomen: NT/ND Extremities: other: (no edema.) - Telemetry Telemetry Rhythm: Afib HR 38-64 - Labs Result Diagrams: 05/14/17 04:35 05/16/17 16:43 Troponin/CKMB CK-MB (CK-2) 1.2 ng/mL (0-6.6) 05/12/17 22:20 Troponin I 0.016 ng/mL (< 0.028) 05/13/17 14:30 - Assessment/Plan 1. Afib with slow ventricular response.\ 2. AMS, resolved. 3. NSVT 4. Hypomagnesemia, resolved. 5. S/P abdominal tumor resection. 6. Chronic afib. 7. Hyperkalemia. PLAN: - She is a;ready set up with Dr Reeves to have an event monitor next week. - No BB due to bradycardia. - CV stable. - May be discharged home once potassium corrected. - Will sign off. Please call with any questions.
[2017-05-16] MEDS: Atorvastatin Calcium 10 MG TAB PO SCH (21:38)
[2017-05-17] MEDS ORDERED: Clopidogrel Bisulfate 75 MG TAB ONE (03:41)
[2017-05-17 05:11] LABS: Hematocrit 36.3 % (36.0-47.0)
[2017-05-17 05:21] LABS: Anion Gap 14 mmol/L (10-20); BUN (Urea Nitrogen) 10 mg/dL (9.8-20.1); BUN/Creatinine Ratio 9.43; Calc. Creatinine Clearance 32 mL/min (70-130); Calcium 9.3 mg/dL (7.8-10.44); Carbon Dioxide 23 mmol/L (23-31); Chloride 106 mmol/L (98-107); Estimated GFR-MDRD 49; Phosphorus 3.3 mg/dL (2.3-4.7)
[2017-05-17] MEDS ORDERED: Loperamide HCl 2 MG CAP PO PRN (07:15)
[2017-05-17] MEDS: Apixaban 5 MG TAB PO SCH (09:16)
[2017-05-17] MEDS: Famotidine 20 MG TAB PO SCH (09:16)
[2017-05-17] MEDS: Cyanocobalamin (Vitamin B-12) 1,000 MCG TAB PO SCH (09:17)
[2017-05-17] MEDS: Folic Acid 1 MG TAB PO SCH (09:17)
[2017-05-17] MEDS: Calcium Carbonate + Vit D 1 TAB PO SCH (09:18)
[2017-05-17] MEDS: Magnesium Chloride 64 MG TAB PO SCH (09:19)
[2017-05-17 11:44] VITALS: TEMP 98
--- NOTE | 2017-05-17 11:56 | PDOC.EVN ---
Event Note - Event Note Event Note: RN called - BP still elevated - will dc Amlodipine. Will change Procardia XL
[2017-05-17] MEDS ORDERED: NIFEdipine XL 30 MG TAB PO SCH (12:00)
--- NOTE | 2017-05-17 12:13 | DIS ---
DATE OF DISCHARGE: 05/17/2017 DISCHARGE DISPOSITION: Home health care will be resumed through [facility]. ALLERGIES: CODEINE, LATEX, PENICILLIN, and SULFA. The patient was seen and examined on the day of discharge, denies any new complaints. Vital signs w ere reviewed. She will be discharged later today once the blood pressure is better controlled. BRIEF HOSPITAL COURSE: The patient is an 86-year-old female with paroxysmal atrial fibrillation on anticoagulation and colon cancer, status post resection, presented to the hospital with altered ment ation. Please refer to the history and physical dated 05/13/2017 for further details. The patient was admitted to the hospital with a diagnosis of metabolic encephalopathy, probably caus ed by multiple electrolyte imbalance. Her magnesium was less than 0.7. Her phosphorus was 1.7 with lowest potassium of 3.0. Her calcium was also at 6.6 with albumin of 3.8. She was also found to h ave vitamin B12 deficiency with levels at 164. Her electrolytes were gradually replaced. After rosemary ctrolyte replacement, her potassium went up from 3-6.2. She had received maximum of 60-80 mEq of po tassium chloride. I think her potassium increased probably after replacement of magnesium and calci um. Her potassium has normalized on the day of discharge after Kayexalate. She was advised to repe at labs in the next 2-3 days. Oral potassium supplement, which she takes at home, has been disconti nued. During this hospital stay, the patient had multiple arrhythmias on the mohel. She had v entricular tachycardia in the first 24 hours with repeat short run of ventricular tachycardia on the day of discharge. She also had a 2.8 second sinus pauses. For this reason, Cardiology was consult ed. She continued to be on anticoagulation for atrial fibrillation. The patient and the family dec lined pacemaker. An event monitor will be arranged through her primary employment adjudicator, Dr. Dominick morel. Plan of care was discussed with the patient's family in detail. Total time coordinating the discharge of this patient was 40 minutes. FINAL DIAGNOSES: 1. Toxic metabolic encephalopathy, multifactorial, improved. 2. Ventricular tachycardia with 2.8 seconds sinus pause. Patient probably has sick sinus syndrome. The patient is refusing pacemaker. Risk of refusing pacemaker discussed with the patient and the family. They stated understanding. 3. Gastroesophageal reflux disease. Proton pump inhibitors have been discontinued due to continue d hypomagnesemia. She was advised to start on Pepcid instead. 4. Hyperkalemia of unclear etiology. Patient was seen by Nephrology. Potassium has been normalize d on the day of discharge. 5. Moderate protein-calorie malnutrition. 6. Dehydration on admission, improved with IV fluids. 7. Chronic anemia. 8. Poor appetite. 9. Chronic diarrhea, improved. 10. Indeterminate troponins, probably secondary to tachyarrhythmia. 11. Hypocalcemia, corrected. 12. Hypophosphatemia, corrected. 13. Severe hypomagnesemia, corrected. 14. PENICILLIN, SULFA, and CODEINE allergy. 15. Hypokalemia, replaced. 16. 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 Plan of care was discussed with the patient. She stated understanding.
[2017-05-17 14:23] VITALS: BP 144/74
[2017-05-18] MEDS ORDERED: NIFEdipine XL 30 MG TAB PO SCH (09:00)
--- NOTE | 2017-05-19 14:38 | EKG ---
Test Reason : Blood Pressure : / mmHG Vent. Rate : 064 BPM Atrial Rate : 234 BPM P-R Int : 000 ms QRS Dur : 084 ms QT Int : 384 ms P-R-T Axes : 000 038 241 degrees QTc Int : 396 ms Atrial fibrillation with premature ventricular or aberrantly conducted complexes Low voltage QRS Septal infarct , age undetermined Abnormal ECG Confirmed by ANJELICA BANKS, KENROY (23), features editor CALIN LOPEZ ([id number]) on 05/19/2017 2:38:24 PM Referred By: Confirmed By:KENROY DEJESUS MD
--- NOTE | 2017-05-19 14:39 | EKG ---
Test Reason : Blood Pressure : / mmHG Vent. Rate : 052 BPM Atrial Rate : 064 BPM P-R Int : 000 ms QRS Dur : 088 ms QT Int : 534 ms P-R-T Axes : 000 029 -70 degrees QTc Int : 496 ms Atrial fibrillation Low voltage QRS Cannot rule out Anterior infarct , age undetermined Abnormal ECG Confirmed by ANJELICA BANKS, KENROY (23), manuscript editor CALIN LOPEZ ([id number]) on 05/19/2017 2:38:46 PM Referred By: Confirmed By:KENROY DEJESUS MD
--- NOTE | 2017-05-26 14:40 | PQF ---
ZAHRAA RAJAN ROMAIN BRANCH [id number] [address] [place] [address] [id number] CLINICAL DOCUMENTATION CLARIFICATION FORM: POST DISCHARGE PLEASE FAX RESPONSE BACK TO [phone] Addendum to original discharge summary date: ____ Late entry note date: __ DATE: 05/26/17 ATTN: Chuy Heaton MD The following CLINICAL INDICATORS - SIGNS / SYMPTOMS are present in the medical record: Discharge Summary pg. 1 Brief Hospital Course: ....The patient was admitted to the hospital with a diagnosis of metabolic encephalopathy, probably caused by multiple electroyte imbalance. pg. 2 Final Diagnoses #1. Toxic metabolic encephalopathy RISKS: Multiple electrolyte imbalance Afib PETER TREATMENTS: IV fuids Please provide a response below if a more specific term indicating a diagnosis and/or acuity level for this condition can be identified. Please exercise your independent, professional judgment in responding to the clarification form. Clinical indicators are provided at the top of this form for your review. For continuity of documentation, please document condition throughout progress notes and discharge summary. Thank you. [ ] Present on Admission (POA): [ ] Yes [ ] No [ ] Unable to determine [ ] Encephalopathy: Type: [ ] Acute [ ] Subacute [ ] Chronic Etiology: [ ] Hypertensive [ ] Metabolic [ ] Toxic [ ] Toxic Metabolic [ ] Hepatic [ ] Hypoxic [ ] Septic [ ] Alcohol [ ] Drugs (specify) [ ] Post procedural ( specify) Severity: [ ] with coma [ ] without coma [ ] If Toxic Metabolic then state the toxic source [ ] No diagnosis of Encephalopathy [ ] Does not apply to this patient [ ] Unable to determine [ ] Other diagnosis: _ Physician/Provider Signature Date Time (This form is maintained as a part of the permanent medical record) 2014 [employer]. All Rights Reserved [email or web address] [email or web address]
== END 2017-05-17 14:25 | disposition home health service (06) | DRG 640 ==
LOC: SCSER 21:34 → 2SE 05-13 00:12 → OBSVTOIN 05-13 00:12
PROVIDERS: ADMIT Internal Medicine; ATTEND Internal Medicine
PROC: B030ZZZ Magnetic Resonance Imaging (MRI) of Brain (ICD-10-PCS; principal; 2017-05-13)
DX: E83.42 Hypomagnesemia (principal); G93.41 Metabolic encephalopathy; I47.2 Ventricular tachycardia; N17.9 Acute kidney failure, unspecified; I48.0 Paroxysmal atrial fibrillation; E44.0 Moderate protein-calorie malnutrition; I24.8 Other forms of acute ischemic heart disease; I49.5 Sick sinus syndrome; E53.8 Deficiency of other specified B group vitamins; Z68.21 Body mass index [BMI] 21.0-21.9, adult; K21.9 Gastro-esophageal reflux disease without esophagitis; E83.51 Hypocalcemia; E86.0 Dehydration; D64.9 Anemia, unspecified; N18.2 Chronic kidney disease, stage 2 (mild); E87.6 Hypokalemia; E83.39 Other disorders of phosphorus metabolism; Z85.038 Personal history of other malignant neoplasm of large intestine; Z79.01 Long term (current) use of anticoagulants; Z88.0 Allergy status to penicillin; Z88.7 Allergy status to serum and vaccine; Z88.5 Allergy status to narcotic agent; Z91.040 Latex allergy status; Z88.2 Allergy status to sulfonamides; Z90.49 Acquired absence of other specified parts of digestive tract
CPT/HCPCS: 36415; 70450; 70551; 74022; 80053; 80061; 80069; 80306; 80307; 81003; 81015; 82553; 82607; 83735; 84100; 84443; 84484; 85014; 85018; 85025; 85049; 85610; 85730; 87324; 87449; 93005; 94760; A4216; G8978-GP-CI; G8979-GP-CI; G8980-GP-CI; G8987-GO-CI; G8988-GO-CI; G8989-GO-CI; J0360; J3475; J7050; Q0162

== ENCOUNTER 2017-08-07 08:26 | Outpatient (CLI) | payer MEDICARE, BC ==
[2017-08-07] MEDS ORDERED: Iopamidol 370 76% 100 ML VIAL ONE (09:00)
--- NOTE | 2017-08-07 12:04 | CT ---
CONTRAST ENHANCED CT IMAGES OF THE ABDOMEN AND PELVIS: HISTORY: Liver mass. TECHNIQUE: Contrast enhanced CT images of the abdomen and pelvis are obtained after the administration of IV and oral contrast. FINDINGS: Multiple tiny areas of patchy density are seen in the right lung base. These ill defined lesions jeffry ear to be slightly more prominent than on the previous comparison CT from 04/25/2017. Some minimal a reas of scarring are also seen in the left lung base. No definite evidence of hepatic parenchymal lesions seen. The spleen is unremarkable. The pancreas and adrenal glands are unremarkable. The right kidney is unremarkable. Moderate left-sided hydroure teronephrosis is seen. The left ureter and collecting system is dilated, compared to the previous ex am. The exact location where the left ureteral dilatation ends is difficult to visualize; however, i t appears to be within the pelvis. There do appear to be some areas of thickening in the sigmoid col on, just proximal to its surgical anastomosis with the rectum. This may represent postoperative scar ring and compression of the left ureter. A urological consultation is recommended. Atherosclerotic calcification of the abdominal aorta is seen. No significant evidence of pelvic lymphadenopathy is seen. IMPRESSION: 1. Slightly increasing right lung base pulmonary parenchymal nodules. 2. Interval development of left-sided hydroureteronephrosis. There may be some soft tissue fullness in the left sigmoid colon, which may result in compression of the distal left ureter. POS: ARNULFO
== END 2017-08-07 08:27 | disposition home or self-care (01) ==
LOC: SCSCT 08:26
PROVIDERS: ATTEND Specialist
DX: C7A.8 Other malignant neuroendocrine tumors (principal); N13.30 Unspecified hydronephrosis; R91.8 Other nonspecific abnormal finding of lung field
CPT/HCPCS: 74177

== ENCOUNTER 2017-11-23 09:42 | Outpatient (CLI) | payer MEDICARE, BC ==
[~2017-11-23 09:42] MED LIST: Iopamidol 370 76% 100 ML VIAL ONE
--- NOTE | 2017-11-23 12:14 | CT ---
CT ABDOMEN AND PELVIS WITH IV CONTRAST: Date: 11/23/17 HISTORY: Neuroendocrine tumor. COMPARISON: 08/07/17. FINDINGS: There are stable, subcentimeter, subpleural nodules seen at the right lung base measuring less than 4 .0 mm and unchanged in size and number compared to prior exam. There are tiny bilateral pleural effusions. Post cholecystectomy changes are noted. Again noted is left hydronephrosis and hydroureter. The ureter is dilated down to the distal left ure ter within the pelvis where there is a soft tissue mass measuring 4.0 cm x 2.0 cm. This was also seen on the prior exam. While measurements on the prior exam are slightly smaller in size, this is probab ly related to slice selection. The soft tissue mass in the pelvis is contiguous with the left lateral wall of the sigmoid colon and is thought to be related to an extrinsic mass as opposed to mass withi n the colon. However, involvement of the wall of the colon cannot be entirely excluded. There is cert ainly no bowel obstruction in this region. Postsurgical changes are seen in the region of the rectosi gmoid junction distal to this region. The liver, pancreas, bilateral adrenal glands, right kidney, urinary bladder, and opacified small bow el demonstrate a normal CT appearance. Calcified granuloma is seen in the spleen. Vascular calcifications seen in the abdominal aorta and involving the iliac arteries. There has been interval development of a lobulated mass within the central upper pelvis to the right of midline measuring 3.4 cm x 2.4 cm with a mass seen within the central lower abdomen just superior to the lower IVC which measures 2.1 cm x 1.6 cm, which may represent enlarged lymph nodes. There is stranding in a presacral location with a small amount of fluid also present, which was prese nt on the prior exam. No other interval change. IMPRESSION: 1. Left pelvic mass abutting the sigmoid colon, which is thought to be extrinsic to the sigmoid colo n, although involvement of the lateral wall could not be excluded given close proximity. This may be slightly larger than on the prior exam, and again results in left ureteral obstruction with moderate left hydronephrosis and hydroureter. 2. Enlarged masses within the central lower abdomen and upper pelvis, which may be related to enlarg ed lymph nodes. 3. Tiny bilateral pleural effusions. 4. Stable subpleural nodular densities at the right lung base. POS: [facility]
== END 2017-11-23 09:43 | disposition home or self-care (01) ==
LOC: SCSCT 09:42
PROVIDERS: ATTEND Internal Medicine Hematology & Oncology
DX: C7A.1 Malignant poorly differentiated neuroendocrine tumors (principal); C80.0 Disseminated malignant neoplasm, unspecified; J98.4 Other disorders of lung; R11.2 Nausea with vomiting, unspecified; R19.09 Other intra-abdominal and pelvic swelling, mass and lump; Z92.21 Personal history of antineoplastic chemotherapy
CPT/HCPCS: 74177

== ENCOUNTER 2018-01-03 10:03 | Outpatient (CLI) | payer MEDICARE, BC ==
[2018-01-03 12:12] LABS: #Eosinphils 0.1 thou/uL (0.0-0.7); #Lymphocytes 2.4 thou/uL (1.20-3.40); #Monocytes 0.4 thou/uL (0.11-0.59); #Neutrophils 3.7 thou/uL (1.40-6.50); %Basophils 0.4 % (0.0-1.0); %Eosinophils 0.8 % (0.0-10.0); %Lymphocytes 36.7 % (21.0-51.0); %Monocytes 5.4 % (0.0-10.0); %Neutrophils 56.7 % (42.0-75.0); Hemoglobin 13.7 g/dL (12.0-16.0); Mean Corpuscular HGB CONC 33.5 g/dL (32.0-36.0); Mean Corpuscular Volume 95.4 fl (81.0-99.0); Mean Platelet Volume 7.7 fL (7.4-10.4); Platelet Count 211 thou/uL (130-400); RBC Distribution Width 13.1 % (11.5-14.5); Red Blood Cell (RBC) Count 4.29 mill/uL (4.20-5.40); White Blood Cell (WBC) Count 6.6 thou/uL (4.8-10.8)
[2018-01-03 12:32] LABS: Anion Gap 13 mmol/L (10-20); BUN (Urea Nitrogen) 23 mg/dL (9.8-20.1); Calc. Creatinine Clearance 0 mL/min (70-130); Calcium 9.9 mg/dL (7.8-10.44); Carbon Dioxide 28 mmol/L (23-31); Chloride 103 mmol/L (98-107); Estimated GFR-MDRD 39; Glucose 95 mg/dL (83-110); Potassium 3.2 mmol/L (3.5-5.1); Sodium 141 mmol/L (136-145)
--- NOTE | 2018-01-04 07:29 | EKG ---
Test Reason : Blood Pressure : / mmHG Vent. Rate : 056 BPM Atrial Rate : 250 BPM P-R Int : 000 ms QRS Dur : 084 ms QT Int : 444 ms P-R-T Axes : 000 092 -15 degrees QTc Int : 428 ms Atrial fibrillation with slow ventricular response Rightward axis Anteroseptal infarct , age undetermined Abnormal ECG Confirmed by DR. Fransisco MURRY ([id number]) on 01/04/2018 7:29:27 AM Referred By: RHONDA Confirmed By:DR. Fransisco MURRY
== END 2018-01-03 10:04 | disposition home or self-care (01) ==
LOC: LABBT 10:03
PROVIDERS: ATTEND Specialist
DX: Z01.818 Encounter for other preprocedural examination (principal); C18.9 Malignant neoplasm of colon, unspecified
CPT/HCPCS: 80048; 85025; 93005; 93010

== ENCOUNTER 2018-01-09 05:52 | Day surgery (SDC) | payer MEDICARE, BC ==
[2018-01-03 10:38] VITALS: BMI 20.4
[2018-01-09] MEDS ORDERED: CEFAZOLIN/Water 2 GM/20 ML SYRINGE ONE (06:30)
[2018-01-09] MEDS ORDERED: Ketorolac Tromethamine 30 MG/ML VIAL ONE (06:30)
[2018-01-09] MEDS ORDERED: Lidocaine 2% 10 ML INJ ONE (06:59)
[2018-01-09] MEDS ORDERED: Bupivacaine/Epinephrine 0.25% 30 ML VIAL ONE (06:59)
[2018-01-09] MEDS ORDERED: Fentanyl 100 MCG/2 ML VIAL ONE (07:01)
[2018-01-09] MEDS ORDERED: Midazolam HCl 2 mg/2 ml Vial ONE (07:01)
--- NOTE | 2018-01-09 08:59 | RAD ---
SINGLE VIEW OF THE CHEST: Comparison: 01-17-17 History: Mediport placement. FINDINGS: Single view of the chest shows an enlarged but stable cardiomediastinal silhouette. A right subclavia n Mediport is seen with its tip in the superior vena cava. No pneumothorax is seen. There is no evide nce of consolidation, mass, or pleural effusion. Degenerative changes are seen in the spine. IMPRESSION: Status post Mediport placement without evidence of complication. POS: [facility]
--- NOTE | 2018-01-09 09:23 | OP ---
DATE OF PROCEDURE: 01/09/2018 PREOPERATIVE DIAGNOSIS: Metastatic neuroendocrine cancer. POSTOPERATIVE DIAGNOSIS: Metastatic neuroendocrine cancer. OPERATION PERFORMED: Placement of a right-sided power compatible low profile MediPort. SURGEON: Will Mendiola M.D. ANESTHESIA: Total intravenous anesthesia with local using 0.25% Marcaine with epinephrine. INDICATIONS: The patient has a history of a metastatic neuroendocrine cancer within her abdomen invo lving her colon, small intestine and bladder. She appears to have recurrent tumor and chemotherapy b een recommended. MediPort is placed for chemotherapy administration. DESCRIPTION OF PROCEDURE: Informed consent was obtained. The patient was taken to the operating claudia m where total intravenous anesthesia was obtained with the patient in supine position. Chest was pre pped with ChloraPrep and draped in sterile fashion. Local anesthetic was infiltrated and large gauge needle was passed under the clavicle and subclavian vein. Guidewire was passed through the needle a nd fluoroscopically confirmed to enter the superior vena cava. Additional local anesthetic was infil trated, transverse incision was created and a subcutaneous pocket was dissected. Introducer dilator was passed over the guidewire and fluoroscopically confirmed again to enter the superior vena cava. Catheter was passed through the introducer, which was removed in the usual peel-apart fashion. Rahda ter tip was positioned at the atriocaval junction and trimmed to appropriate length and secured to th e locking hub of the MediPort. Port was secured to pectoral fascia with 2 interrupted sutures of 3-0 Prolene. The incision was closed in layers using 3-0 and 4-0 Monocryl suture and Dermabond was plac ed externally. The port and catheter had a good position by fluoroscopy at the end of the case. Pat ient tolerated the procedure well and was taken to recovery in stable condition. FINDINGS: The patient's port was placed on the right side and low profile port was utilized. Since she is to receive chemotherapy tomorrow, her port was accessed uneventfully at the end of the procedu re and a sterile dressing was placed over the access needle.
== END 2018-01-09 09:32 | disposition home or self-care (01) ==
LOC: SDC 05:52
PROVIDERS: ATTEND Specialist
PROC: 02HV33Z Insertion of Infusion Device into Superior Vena Cava, Percutaneous Approach (ICD-10-PCS; principal; 2018-01-09)
DX: C78.5 Secondary malignant neoplasm of large intestine and rectum (principal); C79.11 Secondary malignant neoplasm of bladder; C78.4 Secondary malignant neoplasm of small intestine; C25.4 Malignant neoplasm of endocrine pancreas; I10 Essential (primary) hypertension; I48.91 Unspecified atrial fibrillation; E78.00 Pure hypercholesterolemia, unspecified; Z88.0 Allergy status to penicillin; Z88.2 Allergy status to sulfonamides; Z88.5 Allergy status to narcotic agent; Z91.040 Latex allergy status; Z79.01 Long term (current) use of anticoagulants; Z79.899 Other long term (current) drug therapy; Z98.890 Other specified postprocedural states
CPT/HCPCS: 71045; C1788; J0131; J1642; J1885; J2250; J3010

== ENCOUNTER 2018-04-09 07:29 | Outpatient (CLI) | payer MEDICARE, BC ==
[2018-04-09] MEDS ORDERED: Iopamidol 370 76% 100 ML VIAL ONE (09:00)
--- NOTE | 2018-04-09 11:26 | CT ---
CT ABDOMEN AND PELVIS WITH CONTRAST: Comparison: 11-23-17 Indication: Neuroendocrine tumors (C78.1), follow up. FINDINGS: The prior rounded mass anterior to the right common iliac artery on prior exam which measured 2.1 cm has resolved. Just inferiorly, prior lobular mass measuring 3.3 cm has decreased, currently measuring 2.9 cm in a similar location. Left lateral pelvic sidewall mass has also decreased, with residual la teral pelvic fat stranding as well as a somewhat indistinguishable oval residual soft tissue mass liliana suring 2.2 cm compared to approximately 4 cm on prior exam. This is difficult to distinguish due to m ultiple adjacent and opacified bowel loops off the pelvis. There is multifocal wall prominence of the regional bowel, notably colon, nonspecific. Diffuse vascul ar disease is present. No interval acute pathology of the solid abdominal organs is otherwise demonst rated. Scattered mild subpleural nodularity is grossly stable to prior exam. Diffuse osseous degenera tive change. IMPRESSION: 1. Decreasing size multifocal abdominal and pelvic masses which indicate interval response to therapy . 2. Multifocal areas of chronic wall thickening. Findings indicate colitis which may be infectious or inflammatory. Ischemic process is considered less likely given the distribution as well as involvemen t of the rectosigmoid. Recommend clinical correlation and imaging follow up may also be obtained. POS: [facility]
== END 2018-04-09 07:30 | disposition home or self-care (01) ==
LOC: SCSCT 07:29
PROVIDERS: ATTEND Internal Medicine Hematology & Oncology
DX: C7A.1 Malignant poorly differentiated neuroendocrine tumors (principal); R19.09 Other intra-abdominal and pelvic swelling, mass and lump
CPT/HCPCS: 74177

== ENCOUNTER 2018-05-15 11:13 | Outpatient (CLI) | payer MEDICARE, BC | END 2018-05-15 11:14 | disposition home or self-care (01) | LOC: BICMAMMO 11:13 | PROVIDERS: ATTEND Specialist | DX: Z12.31 Encounter for screening mammogram for malignant neoplasm of breast (principal); R92.1 Mammographic calcification found on diagnostic imaging of breast; Z80.3 Family history of malignant neoplasm of breast; Z85.038 Personal history of other malignant neoplasm of large intestine | CPT/HCPCS: 77063; 77067 ==

== ENCOUNTER 2018-08-07 08:08 | Outpatient (CLI) | payer MEDICARE, BC ==
--- NOTE | 2018-08-07 11:05 | CT ---
CT ABDOMEN AND PELVIS WITH IV CONTRAST: Date: 08/07/18 HISTORY: Malignant poorly differentiated neuroendocrine tumor. Follow-up evaluation. COMPARISON: 04/09/18 and 11/23/17. FINDINGS: There are several stable subpleural pulmonary nodules at the right lung base, largest measuring appro ximately 4.0 mm, which are unchanged in size or number compared to prior studies. A very tiny right pleural effusion is present. Post cholecystectomy changes are again noted. The liver, pancreas, bilateral adrenal glands, and kidneys demonstrate a normal CT appearance. Calcif ied granuloma is again seen in the spleen. The opacified bowel and decompressed urinary bladder have a grossly normal CT appearance. Vascular calcifications seen in the abdominal aorta and iliac arteries. There are two closely adjacent masses seen within the central pelvis just to the right of midline, la rgest measuring 2.9 cm x 2.2 cm, and smaller lesion measuring 1.9 cm x 1.7 cm. Lesions on prior study of 11/23/17 measured 3.4 cm x 2.4 cm and 2.1 cm x 1.6 cm, respectively. Intervening CT scan examinat ion on 04/09/18 demonstrated an interval decrease in size of the masses with conglomeration of the ma ss measuring 2.1 cm x 2.9 cm on the intervening study suggesting enlargement of the lesion since the study on 04/09/18. The area of soft tissue density adjacent to the sigmoid colon is ill-defined, but certainly smaller i n size compared to the study on 11/23/17. This area measures 2.1 cm x 1.5 cm on this exam and previou sly measured 4.0 cm x 2.0 cm on study of 11/23/17. This area was also less well delineated on the int ervening study. No definite new masses are seen within the abdomen or pelvis, and no new enlarged lymph nodes are pre sent. Postsurgical changes rectosigmoid junction are again present. No other interval change. IMPRESSION: 1. Interval increase in size of the previously noted pelvic mass adjacent to the right iliac arterie s compared to study on 04/09/18, but these masses do remain smaller in size compared to study on 11/03 10/22. 2. Soft tissue density adjacent to the sigmoid colon lateral aspect left pelvis, which is ill-define d but remains smaller in size compared to study on 11/23/17, with largest dimension of 2.1 cm. No new masses are seen within the pelvis. 3. Postsurgical changes rectosigmoid junction with stable stranding in presacral location. 4. Stable subpleural nodularity right lung base. POS: [facility]
== END 2018-08-07 08:09 | disposition home or self-care (01) ==
LOC: SCSCT 08:08
PROVIDERS: ATTEND Internal Medicine Hematology & Oncology
DX: C7A.1 Malignant poorly differentiated neuroendocrine tumors (principal); R91.1 Solitary pulmonary nodule; R19.00 Intra-abdominal and pelvic swelling, mass and lump, unspecified site
CPT/HCPCS: 74177

== ENCOUNTER 2018-10-12 12:34 | Observation (INO) | payer MEDICARE, BC ==
[2018-10-12] MEDS ORDERED: Lidocaine 4% Cream 5 GM TUBE w/ Tegaderm ONE (13:31)
--- NOTE | 2018-10-12 13:58 | CT ---
CT BRAIN: Date: 10-12-18 Provided Clinical History: Vision changes. FINDINGS: Comparison is made with study dated 05-12-17. The ventricular system appears normal in size and morphology. There is no evidence for intracranial h emorrhage or mass effect. Chronic microvascular ischemic changes are noted involving the cerebral whi te matter. The extracranial soft tissues and osseous structures demonstrate an unremarkable CT appear ance. IMPRESSION: No evidence for intracranial hemorrhage or mass effect. POS: [facility]
[2018-10-12 14:20] LABS: #Eosinphils 0.1 thou/uL (0.0-0.7); #Monocytes 0.5 thou/uL (0.11-0.59); #Neutrophils 3.1 thou/uL (1.40-6.50); %Basophils 0.6 % (0.0-1.0); %Eosinophils 1.4 % (0.0-10.0); %Lymphocytes 35.2 % (21.0-51.0); %Monocytes 8.8 % (0.0-10.0); Hemoglobin 11.5 g/dL (12.0-16.0); Mean Corpuscular HGB CONC 32.7 g/dL (32.0-36.0); Mean Corpuscular Hemoglobin 31.7 pg (27.0-31.0); Mean Corpuscular Volume 96.9 fL (78.0-98.0); Mean Platelet Volume 7.9 fL (7.4-10.4); Platelet Count 183 thou/uL (130-400); Red Blood Cell (RBC) Count 3.63 mill/uL (4.20-5.40); White Blood Cell (WBC) Count 5.6 thou/uL (4.8-10.8)
[2018-10-12 14:26] LABS: INR-International Normal Ratio 1.4; Prothrombin Time 16.8 SEC (12.0-14.7)
[2018-10-12 14:27] LABS: PTT 73.8 SEC (22.9-36.1)
[2018-10-12 14:39] LABS: ALT (SGPT) 9 U/L (8-55); AST (SGOT) 18 U/L (5-34); Albumin 4.1 g/dL (3.4-4.8); Alkaline Phosphatase 105 U/L (40-150); Anion Gap 11 mmol/L (10-20); BUN (Urea Nitrogen) 21 mg/dL (9.8-20.1); Bilirubin, Total 0.7 mg/dL (0.2-1.2); Calc. Creatinine Clearance 0 mL/min (70-130); Calcium 9.9 mg/dL (7.8-10.44); Carbon Dioxide 25 mmol/L (23-31); Chloride 109 mmol/L (98-107); Estimated GFR-MDRD 44; Globulin 2.8 g/dL (2.4-3.5); Glucose 88 mg/dL (83-110); Protein, Total 6.9 g/dL (6.0-8.3); Sodium 141 mmol/L (136-145)
[2018-10-12] MEDS ORDERED: hydrALAZINE 10 MG TAB PO SCH (15:15)
[2018-10-12] MEDS ORDERED: hydrALAZINE 20 MG/ML VIAL SLOW IVP PRN ×2 (15:54→16:12)
[2018-10-12] MEDS ORDERED: Ondansetron PF 4 MG/2 ML Vial IVP PRN (15:54)
[2018-10-12] MEDS ORDERED: Acetaminophen 325 MG TAB PO PRN (15:54)
[2018-10-12] MEDS ORDERED: Senokot S 8.6-50 MG TAB PO PRN (15:54)
[2018-10-12] MEDS ORDERED: Ondansetron ODT 4 MG TAB PO PRN (15:54)
[2018-10-12 15:57] LABS: Magnesium 1.8 mg/dL (1.6-2.6); Phosphorus 3.8 mg/dL (2.3-4.7)
[2018-10-12] MEDS ORDERED: Lorazepam 0.5 MG TAB PO PRN (16:13)
[2018-10-12 16:53] VITALS: BMI 19.3
--- NOTE | 2018-10-12 17:51 | HP ---
CHIEF COMPLAINT: Sudden onset of visual deficit lasting for approximately 45 minutes earlier today. HISTORY OF PRESENT ILLNESS: The patient is an 87-year-old female with chronic atrial fibrillation, on Eliquis, presented to the emergency room with above symptoms. Over the last 1 week, the patient has transient blurring of vision lasting for less than 5 minutes, especially in the mornings. She gets mild headache when she regains normal vision. The headache usually resolves with Tylenol. The headache is generalized without any photophobia, phonophobia, seizure, or visual deficit. This morning her symptoms lasted for 35 to 40 minutes. The headache was slightly more intense than usual. It was more or less constant. She denies any double vision, facial weakness, slurring of speech, weakness, or numbness of any of her extremities. No seizures reported. The patient is compliant with Eliquis. In the emergency room, initial vital signs showed temperature 97.8, pulse rate of 69, blood pressure 184/77 with O2 saturation 100% on room air. CT scan of the brain was negative for acute findings. It showed chronic microvascular ischemic changes. EKG showed atrial fibrillation. PAST MEDICAL HISTORY: 1. Chronic atrial fibrillation, on Eliquis 2.5 mg b.i.d. 2. CKD, stage 3. 3. History of colon cancer, followed by Dr. Carias. 4. GERD. 5. Hypertension. 6. History of ventricular tachycardia with 2.8 second sinus pause in May of 2017. Pacemaker was offered, however, the patient declined. PAST SURGICAL HISTORY: 1. MediPort placement. 2. Right ovarian oophorectomy. 3. Laparoscopic cholecystectomy. 4. Colon resection. 5. Bladder reconstruction. ALLERGIES: THE PATIENT IS ALLERGIC TO CODEINE, LATEX, PENICILLIN, AND SULFA. CURRENT HOME MEDICATIONS: 1. Eliquis 2.5 mg b.i.d. 2. Calcium carbonate 600 mg daily. 3. Vitamin B12 of 1000 mcg daily. 4. Omeprazole 20 mg daily. 5. Slow-Mag 64 mg three times a day. 6. Lisinopril 20 mg b.i.d. 7. Folic acid 1 mg daily. SOCIAL HISTORY: The patient currently lives at home with her . She denies any tobacco, alcohol, or drug use. She ambulates with the help of her cane. She is full code and makes her own decision with the help of her . FAMILY HISTORY: Negative for premature coronary artery disease. REVIEW OF SYSTEMS: The patient denies any chest pain, palpitations, lightheadedness, or syncope. No nausea, vomiting, or diarrhea reported. All other review of systems was reviewed and was found negative. PHYSICAL EXAMINATION: VITAL SIGNS: As discussed above. GENERAL: An 87-year-old female, in no apparent distress. Denies any visual deficit at this time. HEENT: Head, atraumatic and normocephalic. Sclerae anicteric. Moist mucous membranes. No oral lesion. NECK: Supple. No JVD appreciated. No carotid bruit. LUNGS: Clear to auscultation bilaterally. No wheezing, rales, or rhonchi. HEART: S1 and S2 present. Irregularly irregular. No heaves or pulsation. ABDOMEN: Soft, nontender. Bowel sounds present. EXTREMITIES: No edema or calf tenderness. NEUROLOGY: Cranial nerves 2 through 12 are normal on examination. Ddxktu-uc-[id number] test was normal. Reflexes were equivocal. Power was 5/5 in all extremities. Sensation to touch was normal bilaterally. OPHTHALMOLOGICAL: Done by the ER physician was negative for acute findings per the ER report. PSYCHIATRY: Alert, awake, and oriented x3. SKIN: Warm and dry. LYMPH NODES: No palpable lymph nodes in the neck. PERIPHERAL VASCULAR: Radial pulses palpable bilaterally. MUSCULOSKELETAL: No joint swelling pr tenderness. LABORATORY FINDINGS: WBC 5.6, hemoglobin 11.5, hematocrit 35.1, and platelets 183. Chemistry showed sodium 141, potassium 4, chloride 109, bicarb 25, BUN 21, and creatinine 1.16. Magnesium phosphorus in normal range. Troponin 0.016. CT scan of the brain and EKG by my review as discussed above. IMPRESSION: 1. Sudden onset of blurriness of vision lasting for less than 1 hour. Symptoms are consistent with transient ischemic attack. 2. Chronic atrial fibrillation, on Eliquis. 3. Hypertension. 4. Claustrophobia. 5. Chronic hypomagnesemia, on replacement. 6. Chronic anemia. 7. Colon cancer, followed by Dr. Carias. 8. Gastroesophageal reflux disease, on PPIs. 9. Chronic kidney disease, stage 3. PLAN: The patient will be monitored in the stroke unit. We will get stroke workup including MRI of the brain, echocardiogram, and carotid Doppler. We will check ESR to rule out temporal arteritis. Neuro checks. Add lorazepam as needed for claustrophobia. Consult Neurology. We will check fasting lipid profile in a.m. Plan of care was discussed with the patient in detail. She stated understanding. Job ID: [id number]
[2018-10-12] MEDS ORDERED: Prevnar 13-Val Conj/PF 0.5 ML SYRINGE IM ONE (18:00)
--- NOTE | 2018-10-12 18:34 | ULT ---
CAROTID DOPPLER ULTRASOUND BILATERAL STANDARD 10/12/18 HISTORY: TIA. COMPARISON: None. TECHNIQUE: Real time funes scale color doppler and spectral analysis of the extracranial carotid and vertebral ar teries was performed. There is antegrade flow of both vertebral arteries. No elevated peak systolic velocities within the i nternal carotid arteries. Mild atherosclerotic plaque both carotid bulbs. IMPRESSION: No hemodynamically significant stenosis. POS: [facility]
[2018-10-12] MEDS ORDERED: Atorvastatin Calcium 10 MG TAB PO SCH (21:00)
[2018-10-13 07:14] LABS: Cardiac Risk 2.2 (Less than 4.5)
--- NOTE | 2018-10-13 09:45 | MRI ---
MRI OF THE BRAIN WITHOUT CONTRAST: COMPARISON: None. HISTORY: Temporary memory loss yesterday that has completely resolved. TECHNIQUE: Multiplanar, multisequence MR images were obtained of the brain without contrast. FINDINGS: There are diffuse scattered foci of high FLAIR signal in the subcortical and periventricular white ma tter, likely secondary to small-vessel ischemic disease. No restricted diffusion is seen to suggest an acute infarction. There is no evidence of hydrocephalus, intracranial hemorrhage, or extraaxial f luid collection. The expected flow voids are present. The corpus callosum, pituitary, and craniocervical junction are unremarkable. A small amount of fluid is seen in the right sphenoid sinus. The other paranasal sinuses and mastoid air cells are well aerated. IMPRESSION: Extensive small-vessel ischemic disease without acute intracranial abnormality. POS: [facility]
--- NOTE | 2018-10-13 13:39 | CON ---
DATE OF CONSULTATION: 10/13/2018 CHIEF COMPLAINT: Transient vision loss. HISTORY OF PRESENT ILLNESS: The patient is a very pleasant 87-year-old right-handed lady, who is very happy and jovial to talk to. She reports yesterday she had bilateral visual loss. She could not identify anyone. She felt this was more of a blurred vision and it lasted 45 minutes. After as it was improving, she started to have a headache. It was a headache throughout her head. It lasted 15 to 20 minutes. She did not have any other symptoms. She was in her recliner, watching TV when this happened. The patient is otherwise healthy, very independent. She states she and her look after themselves and she has never had a previous stroke or any similar symptoms. She is on Eliquis for chronic atrial fibrillation and is very compliant with this. She tried aspirin in the past, but it caused her to have nausea and stomach pain, therefore she stopped it. She was brought to the ER with these symptoms. PREVIOUS MEDICAL HISTORY: Chronic atrial fibrillation, on Eliquis 2.5 mg b.i.d.; chronic kidney disease; history of colon cancer; gastroesophageal reflux disease; hypertension; history of ventricular tachycardia with 2.8 per second sinus pause in May 2017; and pacemaker was declined by the patient. The patient also reports she has a mitral valve prolapse syndrome. PAST SURGICAL HISTORY: She has a MediPort. She had oophorectomy, cholecystectomy, colon resection, and bladder reconstruction in the past. ALLERGIES: SHE IS ALLERGIC TO CODEINE, PENICILLIN, AND SULFA, WHICH CAN CAUSE NAUSEA. SHE HAS LATEX ALLERGY WELL. FAMILY HISTORY: Her mother at 48. Father at 53. Both from unknown cause. Two sisters are 83 and 79. SOCIAL HISTORY: She lives with her . Does not smoke or drink. She is very independent. REVIEW OF SYSTEMS: PULMONARY: Negative for shortness of breath or cough. CARDIAC: Negative for any palpitations, but positive for atrial fibrillation. GASTROINTESTINAL: Positive for some stomach discomfort. No vomiting or nausea. OPHTHALMOLOGIC: Positive for blurred vision lasting 45 minutes. NEUROLOGIC: Positive for visual syndrome, visual changes, and headache. DERMATOLOGIC: Negative for any skin rash. ENDOCRINE: Negative for any diabetes or thyroid dysfunction. PHYSICAL EXAMINATION: VITAL SIGNS: Blood pressure was 148/74, pulse is 74, temperature 97.6, and respiratory rate 16. GENERAL APPEARANCE: Very happy and talkative and pleasant lady. CHEST: Clear vesicular breathing. CARDIOVASCULAR: S1 and S2 heard. No murmurs. ABDOMEN: Soft and nontender. NEUROLOGICAL: Higher intellectual functions normal. Orientation to time, place, and person. Cranial nerves II through XII. Pupils are 3 mm, reactive to light. Normal extraocular movements. No facial asymmetry. Palate is elevating symmetrically. Normal hearing to finger rub. Normal sensation of face. Tongue is midline. Motor examination; bulk normal, tone normal. Strength 5/5 in upper and lower extremities in iliopsoas, hamstrings, quadriceps, ankle dorsiflexion, plantar flexion, deltoid, biceps, triceps, wrist extension and flexion, and finger extension and flexion bilaterally. Deep tendon reflexes 2+ throughout and sensory examination normal to touch bilaterally upper and lower extremities. Cerebellar; normal [id number] and [id number]-sv-[id number]. Gait not tested. CURRENT LABORATORY DATA: Her laboratory reports white count 5.6, hemoglobin 11.5, hematocrit 35.1, and platelets 183. PT 16.8, INR 1.4, and PTT 73.8. Sodium 141, potassium 4.0, chloride 109, bicarb 25, BUN 21, and creatinine 1.16. AST is 18, ALT 9, and alkaline phosphatase 105. Cholesterol 149, triglycerides 111, LDL 60, HDL 67, heart disease risk ratio 2.2. IMAGING DATA: Her CT of the head was completed and they did not show any hemorrhage or mass effect and brain MRI was completed and MRI of the brain showed extensive small vessel ischemic disease without acute intracranial abnormality and carotid Dopplers showed no hemodynamically significant stenosis. IMPRESSION: The patient is a 87-year-old lady with a transient visual disturbance bilaterally, which lasted approximately 45 minutes. She has chronic atrial fibrillation and is on Eliquis. Her current workup so far is negative. She is still pending echocardiogram. Carotid Doppler was negative. Brain MRI did not show an acute infarct likely diagnosis is transient ischemic attack or TIA. RECOMMENDATIONS: 1. Please complete her echocardiogram looking for cardiac source of emboli. 2. Consider adding aspirin 81 mg per day for stroke prophylaxis. The patient is agreeable to this. She will need to follow up with her leasing coordinator. Job ID: [id number]
[2018-10-13 15:45] VITALS: BP 142/69; TEMP 97.6
--- NOTE | 2018-10-13 20:11 | DIS ---
DATE OF ADMISSION: 10/12/2018 DATE OF DISCHARGE: 10/13/2018 DISCHARGE DISPOSITION: Home. FOLLOWUP: 1. Follow up with primary care physician, Dr. Garcia in 1 week. 2. Follow up with Neurology, Dr. Cho in 2 weeks. DISCHARGE MEDICATIONS: Same as admission medications. The patient will continue Eliquis 2.5 mg b.i.d. No changes in her medications were made. Please note that the patient declined aspirin in addition to Eliquis. She will discuss further with primary care physician and lye machine operator, Dr. Reeves. The patient was seen and examined on the day of discharge. Denies any new complaints. No chest pain, shortness of breath, palpitations, or focal neurologic deficit. INPATIENT CONSULTS: 1. Neurology, Dr. Zhang. 2. Opthalmology , Dr. Gomes. BRIEF HOSPITAL COURSE: The patient is an 87-year-old female with chronic atrial fibrillation on anticoagulation, presented to the hospital with sudden onset of visual deficit lasting for approximately 45 minutes. Please refer to the history and physical for further details. The patient was admitted to the hospital with a diagnosis of transient ischemic attack. She underwent MRI of the brain that showed extensive small-vessel ischemic disease without any acute infarction. Carotid Doppler was negative for hemodynamically significant stenosis. Echocardiogram has been done, report is pending at this time. The patient was advised to stay for the report; however, the patient and the family are not comfortable driving in dark. They requested to be discharged. They will follow up with Dr. Garcia's office on Monday for echocardiogram report. She denies any focal neurologic deficit at this time. She was evaluated by Dr. Gomes, Ophthalmology as well. FINAL DIAGNOSES: 1. Suspected transient ischemic attack. Please note that the patient declined 81 mg aspirin, which was recommended by Neurology. She will discuss with Dr. Garcia and Dr. Reeves. 2. Chronic atrial fibrillation, on Eliquis 2.5 mg b.i.d. 3. Hypertension. 4. Claustrophobia. 5. Chronic hypomagnesemia on replacement. 6. Chronic anemia. 7. Colon cancer followed by Dr. Carias. 8. Gastroesophageal reflux disease. 9. Chronic kidney disease, stage 3. SIGNIFICANT LABS: LDL 60, cholesterol 149, triglyceride 111, HDL 67, magnesium 1.8, phosphorus 3.8, potassium 4.0. Job ID: [id number]
[2018-10-14] MEDS ORDERED: Aspirin 81 mg Enteric Coated Tablet PO SCH (09:00)
== END 2018-10-13 17:05 | disposition home or self-care (01) ==
LOC: ERS 12:34 → 2SE 15:15
PROVIDERS: ADMIT Internal Medicine; ATTEND Internal Medicine
DX: H53.129 Transient visual loss, unspecified eye (principal); I48.2 Chronic atrial fibrillation; I12.9 Hypertensive chronic kidney disease with stage 1 through stage 4 chronic kidney disease, or unspecified chronic kidney disease; N18.3 Chronic kidney disease, stage 3 (moderate); E83.42 Hypomagnesemia; D63.1 Anemia in chronic kidney disease; I47.2 Ventricular tachycardia; K21.9 Gastro-esophageal reflux disease without esophagitis; F40.240 Claustrophobia; Z85.038 Personal history of other malignant neoplasm of large intestine; Z90.721 Acquired absence of ovaries, unilateral; Z90.49 Acquired absence of other specified parts of digestive tract; Z91.040 Latex allergy status; Z88.5 Allergy status to narcotic agent; Z88.0 Allergy status to penicillin; Z88.2 Allergy status to sulfonamides; Z79.01 Long term (current) use of anticoagulants; Z79.899 Other long term (current) drug therapy; Z98.890 Other specified postprocedural states
CPT/HCPCS: 70450; 70551; 80053; 80061; 83735; 84100; 84484; 85025; 85610; 85652; 85730; 90670; 93005; 93306; 93880; 97139; 99285; G0009; G0378 ×2; 36415; 90471

== ENCOUNTER 2019-02-04 10:18 | Outpatient (CLI) | payer MEDICARE, BC ==
--- NOTE | 2019-02-04 11:18 | CT ---
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 Oral contrast was administered. Coronal reformats were performed. FINDINGS: Lower Chest: within normal limits. Abdomen: Liver: within normal limits. Bile Ducts: Normal caliber. Gallbladder: Removed Pancreas: within normal limits. Spleen: within normal limits. Adrenals: within normal limits. Kidneys: within normal limits. Pelvis: Reproductive Organs: Status post hysterectomy Ureters: within normal limits. Bladder: within normal limits. Peritoneum: No ascites or free air, no fluid collection. The previously seen right peritoneal mass haywood s increased in size and now measures 3.8 cm in greatest dimension. The mass adjacent to the sigmoid colon is not visualized on today's examination. However, there may be a new mass in the midline of th e lower pelvis measuring 2.7 cm in size. Alternatively, this could represent nonopacified bowel. Bowel: Normal caliber. Mesentery and Retroperitoneum: No enlarged mesenteric or retroperitoneal lymph nodes. Vessels: Atherosclerotic calcifications. Abdominal Wall: within normal limits. Bones: Degenerative changes in the spine. IMPRESSION: Enlarging mesenteric masses as above.
== END 2019-02-04 10:19 | disposition home or self-care (01) ==
LOC: SCSCT 10:18
PROVIDERS: ATTEND Internal Medicine Hematology & Oncology
DX: C7A.1 Malignant poorly differentiated neuroendocrine tumors (principal); R19.00 Intra-abdominal and pelvic swelling, mass and lump, unspecified site
CPT/HCPCS: 74177

== ENCOUNTER 2019-06-24 08:49 | Outpatient (CLI) | payer MEDICARE, BC ==
[2019-06-24] MEDS ORDERED: Iopamidol 300 61% 100 ML VIAL FS ONE (09:00)
--- NOTE | 2019-06-24 12:38 | CT ---
CT Abdomen Pelvis W Con: 06/24/2019 12:00 AM CLINICAL INFORMATION: Neuroendocrine tumors. 2 mesenteric masses COMPARISON: 02/04/2019 TECHNIQUE: Multiple contiguous axial images were obtained and a CT of the abdomen and pelvis with IV contrast. Oral contrast was administered. Coronal and sagittal reformats were performed. FINDINGS: Lower Chest: within normal limits. Abdomen: Liver: within normal limits. Bile Ducts: Normal caliber. Gallbladder: Removed Pancreas: within normal limits. Spleen: within normal limits. Adrenals: within normal limits. Kidneys: within normal limits. Pelvis: Reproductive Organs: No pelvic masses. Ureters: within normal limits. Bladder: within normal limits. Peritoneum: No ascites or free air, no fluid collection. Bowel: Normal caliber. Mesentery and Retroperitoneum: There is a mass in the mesentery in the mid abdomen measuring 4.5 cm i n greatest dimension. This multilobulated and has slightly enlarged compared to the prior examination. The mass in the lower abdomen/pelvis is not seen and was likely nonopacified bowel on th e prior examination. Vessels: Atherosclerotic calcifications. Abdominal Wall: within normal limits. Bones: Within normal limits IMPRESSION: Solitary enlarging mesenteric mass.
== END 2019-06-24 08:50 | disposition home or self-care (01) ==
LOC: SCSCT 08:49
PROVIDERS: ATTEND Internal Medicine Hematology & Oncology
DX: C7A.1 Malignant poorly differentiated neuroendocrine tumors (principal); R11.2 Nausea with vomiting, unspecified; K55.039 Acute (reversible) ischemia of large intestine, extent unspecified
CPT/HCPCS: 74177; Q9967

== ENCOUNTER 2019-09-02 11:24 | Emergency (ER) | payer MEDICARE, BC ==
--- NOTE | 2019-09-02 12:08 | RAD ---
EXAM: Single view of the chest HISTORY: Productive cough COMPARISON: 01/19/2017 FINDINGS: Single view of the chest shows a normal sized cardiomediastinal silhouette. A right-sided Mediport is seen with its tip in the superior vena cava. There is no evidence of consolidation, mass, or pleural effusion. Degenerative changes are seen in the spine. IMPRESSION: No evidence of acute cardiopulmonary disease
--- NOTE | 2019-09-02 14:52 | RAD ---
PA AND LATERAL CHEST: HISTORY: Cough. COMPARISON: Earlier exam done at 12:57 p.m. on the same day. FINDINGS: The heart size is normal. The aorta is tortuous. Right sided Port-A-Cath remains in place. The lungs are well expanded without lobar consolidation, pneumothoraces or pleural effusions. There are degener ative changes in the spine. IMPRESSION: Stable examination. No radiographic evidence of acute cardiopulmonary process. POS: OFF
[2019-09-02 16:33] LABS: #Eosinphils 0.1 thou/uL (0.0-0.7); #Lymphocytes 1.5 thou/uL (1.20-3.40); #Monocytes 0.3 thou/uL (0.11-0.59); #Neutrophils 4.6 thou/uL (1.40-6.50); %Basophils 0.8 % (0.0-1.0); %Eosinophils 0.9 % (0.0-10.0); %Lymphocytes 23.8 % (21.0-51.0); %Monocytes 4.3 % (0.0-10.0); %Neutrophils 70.3 % (42.0-75.0); Hemoglobin 12.7 g/dL (12.0-16.0); Mean Corpuscular HGB CONC 31.9 g/dL (32.0-36.0); Mean Corpuscular Hemoglobin 30.1 pg (27.0-31.0); Mean Corpuscular Volume 94.3 fL (78.0-98.0); Mean Platelet Volume 8.3 fL (7.4-10.4); Platelet Count 192 thou/uL (130-400); White Blood Cell (WBC) Count 6.5 thou/uL (4.8-10.8)
[2019-09-02 16:49] LABS: Lactic Acid 1.1 mmol/L (0.5-2.2)
[2019-09-02 16:56] LABS: ALT (SGPT) 11 U/L (8-55); AST (SGOT) 15 U/L (5-34); Albumin 3.9 g/dL (3.4-4.8); Alkaline Phosphatase 93 U/L (40-110); Anion Gap 15 mmol/L (10-20); BUN (Urea Nitrogen) 23 mg/dL (9.8-20.1); Bilirubin, Total 0.4 mg/dL (0.2-1.2); Calc. Creatinine Clearance 0 mL/min (70-130); Calcium 8.7 mg/dL (7.8-10.44); Carbon Dioxide 24 mmol/L (23-31); Chloride 106 mmol/L (98-107); Estimated GFR-MDRD 35; Globulin 2.6 g/dL (2.4-3.5); Glucose 150 mg/dL (83-110); Potassium 3.7 mmol/L (3.5-5.1); Protein, Total 6.5 g/dL (6.0-8.3); Sodium 141 mmol/L (136-145)
== END 2019-09-02 18:15 | disposition home or self-care (01) ==
LOC: ERS 11:24
DX: J22 Unspecified acute lower respiratory infection (principal); I10 Essential (primary) hypertension; I49.9 Cardiac arrhythmia, unspecified; I48.91 Unspecified atrial fibrillation; F41.9 Anxiety disorder, unspecified; Z79.899 Other long term (current) drug therapy; Z79.52 Long term (current) use of systemic steroids; Z79.01 Long term (current) use of anticoagulants
CPT/HCPCS: 71045; 71046; 80053; 83605; 84484; 85025; 99284

== ENCOUNTER 2020-01-13 08:25 | Outpatient (CLI) | payer MEDICARE, BC ==
--- NOTE | 2020-01-13 09:12 | CT ---
CT ABDOMEN WITH CONTRAST CT PELVIS WITH CONTRAST: DATE: 01/13/2020 HISTORY: 89-year-old female with C7A.1 malignant poorly differentiated neuroendocrine tumor and R 11.2 nausea with vomiting, unspecified COMPARISON: 06/24/2019 TECHNIQUE: IV injection of iodinated contrast media: administered. Oral contrast media:Administered FINDINGS: Centered slightly to the right of midline in the lower peritoneal cavity, the previously 4.5 x 3.8 x 4.2 cm lobular noncalcified soft tissue density mass is currently approximately 3.9 x 3.8 x 3.9 cm. No evidence of new intraperitoneal or retroperitoneal mass. No evidence of iliac chain, retroperitone al, mesenteric, or yanique hepatis lymphadenopathy. Lung bases are grossly clear. Atherosclerotic calcification of nonaneurysmal abdominal aorta. No evidence of neoplasm or any other major pathology of liver, adrenals, pancreas, kidneys, urinary bladder, or spleen. No small bowel dilation. Cholecystectomy clips. No colonic diverticulitis, small bowel dilation, ascites, or pneumoperitoneum. No destructive osseous lesion identified. There is a new finding of several soft tissue density nodules in the subcutaneous fat of the bilatera l buttocks. These are on the order of approximately 1 to 1.5 cm in size each. IMPRESSION: 1) interval decrease in size of the lower intra-abdominal neoplastic tumor mass. 2 ) Several new nodules in the subcutaneous fat of the bilateral buttocks. Etiology uncertain. Possib ilities include noncalcified injection granulomata versus new metastatic nodules (which would be highly unusual in this location).
[2020-01-13] MEDS ORDERED: Iopamidol 370 76% 100 ML VIAL ONE (09:21)
== END 2020-01-13 08:26 | disposition home or self-care (01) ==
LOC: BICCT 08:25
PROVIDERS: ATTEND Internal Medicine Hematology & Oncology
DX: C7A.1 Malignant poorly differentiated neuroendocrine tumors (principal); C76.2 Malignant neoplasm of abdomen; M62.89 Other specified disorders of muscle
CPT/HCPCS: 74177; Q9967

== ENCOUNTER 2020-05-14 09:25 | Outpatient (CLI) | payer MEDICARE, BC ==
--- NOTE | 2020-05-14 10:53 | CT ---
CT ABDOMEN AND PELVIS WITH ORAL AND IV CONTRAST: HISTORY: Malignant poorly differentiated neuroendocrine tumors. Nausea with vomiting, unspecified. COMPARISON: 01/13/2020. FINDINGS: A tiny left pleural effusion is stable. There are changes of cholecystectomy and stable mild promine nce of the intrahepatic biliary ducts. No hepatic mass is seen. There is a calcified granuloma in t he spleen. The pancreas, adrenal glands, and kidneys are normal. The approximately 4 cm noncalcified soft tissue mass in the right lower peritoneal cavity is stable. No new masses are seen. No free air, free fluid, or lymphadenopathy is identified. There are vascular calcifications without evidence of aneurysmal dilatation of the abdominal aorta. There are degenerative changes in the spine. Several soft tissue nodules in the subcutaneous fat of the gluteal regions are again seen bilaterally . IMPRESSION: Stable exam since 01/13/2020. POS: OFF
[2020-05-14] MEDS ORDERED: Iopamidol 370 76% 100 ML VIAL ONE (14:16)
== END 2020-05-14 09:26 | disposition home or self-care (01) ==
LOC: BICCT 09:25
PROVIDERS: ATTEND Internal Medicine Hematology & Oncology
DX: C7A.1 Malignant poorly differentiated neuroendocrine tumors (principal)
CPT/HCPCS: 74177; 82565; Q9967

== ENCOUNTER 2020-08-18 14:25 | Outpatient (CLI) | payer MEDICARE, BC ==
[~2020-08-18 14:25] MED LIST changes: -Iopamidol 370 76% 100 ML VIAL ONE; +Iopamidol-370 76% 500 ML 1 ML ONE
--- NOTE | 2020-08-18 15:18 | CT ---
CT abdomen and pelvis with IV and oral contrast HISTORY: Malignant poorly differentiated neuroendocrine tumors. Nausea and vomiting. Restaging. COMPARISON: 05/14/2020. FINDINGS: Tiny nonspecific groundglass subpleural nodules at the partially visualized right lung base are stable. Calcified granulomata of the spleen are consistent with healed granulomatous disease. The gallbladder is surgically absent. The lobular heterogeneous low density mass within the central abdominal mesentery just to the right o f midline is 2.9 cm length by 3.9 cm width by 3.4 cm depth on today's exam, unchanged from the previous exam. Prominent calcification throughout the arterial structures. Large amount stool is present throughout the colon. No evidence of bowel inflammation. Suture row noted at the rectosigmoid junction. Numerous noncalcified injection granulomata throughout the posterior subcutaneous tissues again demon strated. 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 IMPRESSION : Stable CT appearance of the heterogeneous low density mass within the central abdomen. No new abnorma lities. Chronic-type findings are stable.
== END 2020-08-18 14:26 | disposition home or self-care (01) ==
LOC: BICCT 14:25
PROVIDERS: ATTEND Internal Medicine Hematology & Oncology
DX: C7A.1 Malignant poorly differentiated neuroendocrine tumors (principal); R19.00 Intra-abdominal and pelvic swelling, mass and lump, unspecified site
CPT/HCPCS: 74177; 82565; Q9967

== ENCOUNTER 2020-12-29 09:01 | Outpatient (CLI) | payer MEDICARE, BC ==
[2020-12-29] MEDS ORDERED: Iopamidol 370 76% 100 ML VIAL ONE (10:30)
== END 2020-12-29 09:02 | disposition home or self-care (01) ==
LOC: BICCT 09:01
PROVIDERS: ATTEND Internal Medicine Hematology & Oncology
DX: C7A.1 Malignant poorly differentiated neuroendocrine tumors (principal); K66.8 Other specified disorders of peritoneum; I10 Essential (primary) hypertension
CPT/HCPCS: 74177; 80053; 82248; 82565; 83615; 83735; 84100; 84443; 84550; Q9967

== ENCOUNTER 2021-06-21 09:04 | Outpatient (CLI) | payer MEDICARE, BC ==
[2021-06-21] MEDS ORDERED: Iopamidol-370 76% 500 ML 1 ML ONE (09:31)
== END 2021-06-21 09:05 | disposition home or self-care (01) ==
LOC: BICCT 09:04
PROVIDERS: ATTEND Internal Medicine Hematology & Oncology
DX: C7A.1 Malignant poorly differentiated neuroendocrine tumors (principal); R91.8 Other nonspecific abnormal finding of lung field; M47.819 Spondylosis without myelopathy or radiculopathy, site unspecified; R19.00 Intra-abdominal and pelvic swelling, mass and lump, unspecified site; I70.0 Atherosclerosis of aorta; K76.9 Liver disease, unspecified; Z90.49 Acquired absence of other specified parts of digestive tract
CPT/HCPCS: 74177; 82565; Q9967

== ENCOUNTER 2021-12-24 09:15 | Inpatient (IN) | payer MEDICARE, BC ==
[2021-12-24] MEDS ORDERED: Ondansetron PF 4 MG/2 ML Vial ONE (09:58)
[2021-12-24 10:39] LABS: #Lymphocytes 0.9 thou/uL (1.20-3.40); #Monocytes 0.7 thou/uL (0.11-0.59); #Neutrophils 8.6 thou/uL (1.40-6.50); %Basophils 0.3 % (0.0-1.0); %Eosinophils 0.3 % (0.0-10.0); %Lymphocytes 9.1 % (21.0-51.0); %Monocytes 6.5 % (0.0-10.0); %Neutrophils 83.8 % (42.0-75.0); Hemoglobin 13.1 g/dL (12.0-16.0); Mean Corpuscular HGB CONC 31.7 g/dL (32.0-36.0); Mean Corpuscular Hemoglobin 30.2 pg (27.0-31.0); Mean Corpuscular Volume 95.1 fL (78.0-98.0); Platelet Count 173 thou/uL (130-400); Red Blood Cell (RBC) Count 4.34 mill/uL (4.20-5.40); White Blood Cell (WBC) Count 10.3 thou/uL (4.8-10.8)
[2021-12-24 11:05] LABS: ALT (SGPT) 32 U/L (8-55); AST (SGOT) 33 U/L (5-34); Albumin 4.3 g/dL (3.4-4.8); Alkaline Phosphatase 100 U/L (40-110); Anion Gap 13 mmol/L (10-20); BUN (Urea Nitrogen) 17 mg/dL (9.8-20.1); Calc. Creatinine Clearance 0 mL/min (70-130); Calcium 9.1 mg/dL (7.8-10.44); Carbon Dioxide 25 mmol/L (23-31); Chloride 102 mmol/L (98-107); Globulin 2.6 g/dL (2.4-3.5); Glucose 149 mg/dL (83-110); Lipase 17 U/L (8-78); Potassium 3.4 mmol/L (3.5-5.1); Protein, Total 6.9 g/dL (5.8-8.1); Sodium 137 mmol/L (136-145)
[2021-12-24 11:34] LABS: Bacteria/HPF None Seen HPF (None Seen); Bilirubin Negative (Negative); Blood, Urine Negative (Negative); Clarity Clear (Clear); Glucose, Urine (Dipstick) Normal (Negative); Ketone, Urine Negative (Negative); Leukocyte Negative Leu/uL (Negative); Nitrite Negative (Negative); Protein, Urine (Dipstick) 30 mg/dL (Neg-Trace); RBC/HPF 0-3 HPF (0-3); Specific Gravity, Urine 1.011 (1.002-1.036); Squamous Epithelial None Seen HPF (0-3); Urobilinogen Normal mg/dL (Less than 2); WBC/HPF None Seen HPF (0-3); pH, Urine 7.5 (5.0-9.0)
[2021-12-24] MEDS ORDERED: Promethazine HCl 25 MG/ML VIAL ONE ×2 (12:19→12:21)
[2021-12-24] MEDS ORDERED: Acetaminophen 500 MG TAB ONE (13:04)
[2021-12-24 13:37] LABS: Lactic Acid 1.9 mmol/L (0.5-2.2)
[2021-12-24] MEDS ORDERED: Ondansetron ODT 4 MG TAB PO PRN (15:00)
[2021-12-24] MEDS ORDERED: Acetaminophen 325 MG TAB PO PRN (15:00)
[2021-12-24] MEDS ORDERED: Ondansetron PF 4 MG/2 ML Vial IVP PRN (15:00)
[2021-12-24 15:37] LABS: SARS-CoV-2 NAA Rapid Test Not Detected (NotDetected)
[2021-12-24 16:15] LABS: Phosphorus 2.3 mg/dL (2.3-4.7)
[2021-12-24 16:51] VITALS: BMI 22.8
[2021-12-24] MEDS: Sodium Chloride 0.9% 1,000 ML IV SCH (16:58)
[2021-12-24] MEDS: hydrALAZINE 20 MG/ML VIAL SLOW IVP PRN (18:22)
[2021-12-24] MEDS ORDERED: Loperamide HCl 2 MG CAP PO SCH (20:45)
[2021-12-24] MEDS: Magnesium Chloride 64 MG TAB PO SCH (21:17)
[2021-12-24] MEDS: Apixaban 2.5 MG TAB PO SCH (21:17)
[2021-12-24] MEDS: Lisinopril 20 MG TAB PO SCH (21:17)
[2021-12-24] MEDS ORDERED: hydrALAZINE 20 MG/ML VIAL SLOW IVP SCH (23:00)
[2021-12-25] MEDS ORDERED: Morphine 2 MG/ML VIAL SLOW IVP SCH (01:00)
[2021-12-25] MEDS ORDERED: Promethazine HCl 25 MG in Sodium Chloride 0.9% 50 ML IVPB SCH (01:00)
[2021-12-25] MEDS ORDERED: Magnesium Sulfate In Water 4 GM in Premix Bag 1 BAG IVPB SCH (02:00)
[2021-12-25] MEDS: Sodium Chloride 0.9% 1,000 ML IV SCH ×2 (06:00→10:01)
[2021-12-25 06:37] LABS: #Monocytes 0.5 thou/uL (0.11-0.59); #Neutrophils 5.3 thou/uL (1.40-6.50); %Basophils 0.2 % (0.0-1.0); %Eosinophils 0.7 % (0.0-10.0); %Lymphocytes 15.3 % (21.0-51.0); %Monocytes 6.8 % (0.0-10.0); %Neutrophils 77.1 % (42.0-75.0); Hemoglobin 12.3 g/dL (12.0-16.0); Mean Corpuscular HGB CONC 32.1 g/dL (32.0-36.0); Mean Corpuscular Hemoglobin 30.5 pg (27.0-31.0); Mean Corpuscular Volume 95.1 fL (78.0-98.0); Mean Platelet Volume 7.9 fL (7.4-10.4); Platelet Count 179 thou/uL (130-400); RBC Distribution Width 15.5 % (11.5-14.5); Red Blood Cell (RBC) Count 4.05 mill/uL (4.20-5.40); White Blood Cell (WBC) Count 6.8 thou/uL (4.8-10.8)
[2021-12-25 06:53] LABS: Anion Gap 12 mmol/L (10-20); BUN (Urea Nitrogen) 12 mg/dL (9.8-20.1); Calc. Creatinine Clearance 36 mL/min (70-130); Calcium 8.4 mg/dL (7.8-10.44); Carbon Dioxide 25 mmol/L (23-31); Chloride 106 mmol/L (98-107); Glucose 114 mg/dL (83-110); Potassium 3.5 mmol/L (3.5-5.1); Sodium 139 mmol/L (136-145)
[2021-12-25 06:54] LABS: Magnesium 3.1 mg/dL (1.6-2.6)
[2021-12-25] MEDS: Calcium Carbonate 600 MG TAB PO SCH (09:51)
[2021-12-25] MEDS: Lisinopril 20 MG TAB PO SCH ×2 (09:51→20:58)
[2021-12-25] MEDS: Folic Acid 1 MG TAB PO SCH (09:52)
[2021-12-25] MEDS: Apixaban 2.5 MG TAB PO SCH (09:52)
[2021-12-25] MEDS: Cyanocobalamin (Vitamin B-12) 1,000 MCG TAB PO SCH (09:52)
[2021-12-25] MEDS: Magnesium Chloride 64 MG TAB PO SCH ×3 (09:52→20:58)
[2021-12-25] MEDS ORDERED: Promethazine HCl 12.5 MG in Sodium Chloride 0.9% 50 ML IVPB PRN (10:12)
[2021-12-25] MEDS: hydrALAZINE 20 MG/ML VIAL SLOW IVP PRN (12:00)
[2021-12-25] MEDS ORDERED: Amlodipine 5 MG TAB PO SCH (12:15)
[2021-12-25] MEDS ORDERED: Loperamide HCl 2 MG CAP PO SCH (21:45)
[2021-12-26 04:05] LABS: #Basophils 0.1 thou/uL (0.0-0.2); #Eosinphils 0.1 thou/uL (0.0-0.7); #Lymphocytes 2.1 thou/uL (1.20-3.40); #Monocytes 0.5 thou/uL (0.11-0.59); #Neutrophils 3.6 thou/uL (1.40-6.50); %Basophils 1.2 % (0.0-1.0); %Eosinophils 1.5 % (0.0-10.0); %Monocytes 8.1 % (0.0-10.0); %Neutrophils 56.1 % (42.0-75.0); Hemoglobin 11.1 g/dL (12.0-16.0); Mean Corpuscular Hemoglobin 30.7 pg (27.0-31.0); Mean Corpuscular Volume 95.9 fL (78.0-98.0); Mean Platelet Volume 7.8 fL (7.4-10.4); Platelet Count 173 thou/uL (130-400); RBC Distribution Width 15.5 % (11.5-14.5); Red Blood Cell (RBC) Count 3.63 mill/uL (4.20-5.40); White Blood Cell (WBC) Count 6.4 thou/uL (4.8-10.8)
[2021-12-26 04:20] LABS: Anion Gap 7 mmol/L (10-20); BUN (Urea Nitrogen) 11 mg/dL (9.8-20.1); Calc. Creatinine Clearance 30 mL/min (70-130); Calcium 8.3 mg/dL (7.8-10.44); Carbon Dioxide 27 mmol/L (23-31); Chloride 109 mmol/L (98-107); Glucose 93 mg/dL (83-110); Potassium 3.5 mmol/L (3.5-5.1); Sodium 139 mmol/L (136-145)
[2021-12-26] MEDS: Amlodipine 5 MG TAB PO SCH (09:30)
[2021-12-26] MEDS: Folic Acid 1 MG TAB PO SCH (09:31)
[2021-12-26] MEDS: Cyanocobalamin (Vitamin B-12) 1,000 MCG TAB PO SCH (09:31)
[2021-12-26] MEDS: Calcium Carbonate 600 MG TAB PO SCH (09:31)
[2021-12-26] MEDS: Lisinopril 20 MG TAB PO SCH ×2 (09:31→21:08)
[2021-12-26] MEDS: Magnesium Chloride 64 MG TAB PO SCH ×3 (09:33→21:08)
[2021-12-26] MEDS: hydrALAZINE 20 MG/ML VIAL SLOW IVP PRN (16:32)
[2021-12-27] MEDS: hydrALAZINE 20 MG/ML VIAL SLOW IVP PRN (03:34)
[2021-12-27 04:57] LABS: Anion Gap 12 mmol/L (10-20); BUN (Urea Nitrogen) 15 mg/dL (9.8-20.1); Calc. Creatinine Clearance 30 mL/min (70-130); Calcium 8.4 mg/dL (7.8-10.44); Carbon Dioxide 23 mmol/L (23-31); Chloride 109 mmol/L (98-107); Glucose 100 mg/dL (83-110); Magnesium 1.5 mg/dL (1.6-2.6); Potassium 3.6 mmol/L (3.5-5.1); Sodium 140 mmol/L (136-145)
[2021-12-27] MEDS ORDERED: Magnesium Sulfate 4 GM in Sodium Chloride 0.9% 250 ML 250 ML IVPB SCH (07:30)
[2021-12-27] MEDS: Magnesium Sulfate In Water 4 GM in Premix Bag 1 BAG IVPB SCH ×2 (10:35→10:38)
[2021-12-27] MEDS: Cyanocobalamin (Vitamin B-12) 1,000 MCG TAB PO SCH (10:40)
[2021-12-27] MEDS: Amlodipine 5 MG TAB PO SCH (10:40)
[2021-12-27] MEDS: Calcium Carbonate 600 MG TAB PO SCH (10:40)
[2021-12-27] MEDS: Lisinopril 20 MG TAB PO SCH (10:41)
[2021-12-27] MEDS: Magnesium Chloride 64 MG TAB PO SCH (10:41)
[2021-12-27] MEDS: Folic Acid 1 MG TAB PO SCH (10:41)
[2021-12-27 11:58] VITALS: BP 168/70
[2021-12-27 12:06] VITALS: TEMP 97.2
== END 2021-12-27 14:45 | disposition home or self-care (01) | DRG 392 ==
LOC: ERS 09:15 → 2NO 14:36 → OBSVTOIN 12-27 13:55
PROVIDERS: ADMIT Family Medicine; ATTEND Family Medicine
DX: A08.4 Viral intestinal infection, unspecified (principal); I48.21 Permanent atrial fibrillation; Z20.822 Contact with and (suspected) exposure to COVID-19; K21.9 Gastro-esophageal reflux disease without esophagitis; I10 Essential (primary) hypertension; E87.6 Hypokalemia; R79.89 Other specified abnormal findings of blood chemistry; R00.1 Bradycardia, unspecified; Z90.49 Acquired absence of other specified parts of digestive tract; Z85.038 Personal history of other malignant neoplasm of large intestine; Z79.01 Long term (current) use of anticoagulants; Z88.5 Allergy status to narcotic agent; Z88.0 Allergy status to penicillin; Z88.2 Allergy status to sulfonamides; Z91.040 Latex allergy status; Z79.899 Other long term (current) drug therapy; Z79.51 Long term (current) use of inhaled steroids; Z90.721 Acquired absence of ovaries, unilateral; Z98.890 Other specified postprocedural states
CPT/HCPCS: 36415; 71045; 80048; 80053; 81003; 81015; 83605; 83690; 83735; 83880; 84100; 84484; 85025; 93005; 93306; J0360; J1642; J2270; J2405; J2550; J3475; J7050